=== PATIENT | female | born 1955 | race Caucasian/White ===

== ENCOUNTER 2017-01-25 12:13 | Inpatient (IN) | payer MEDICARE ==
[~2017-01-25] VITALS: Ht 165.1 cm; Wt 114.8 kg
[2017-01-25] VITALS (9 sets, daily range): BP systolic 150–221; BP diastolic 71–105
--- NOTE | ~2017-01-25 | EKG ---
[place], [place] ELECTROCARDIOGRAM REPORT NAME: MUNIR TRIPLETT UNIT #: [id number] ROOM: 512 DOCTOR: KISHA HERNANDEZ MD BIRTHDATE: [birth year] DOS: 01/26/2017 TIME: 1144 hours. Normal sinus rhythm at 72 beats per minute. Mild left axis deviation. No significant change from an ECG of the previous day. KISHA HERNANDEZ MD CM:EKGRPT:ELECTROCARDIOGRAM REPORT 1722 KISHA HERNANDEZ MD
--- NOTE | ~2017-01-25 | EKG ---
[place], [place] ELECTROCARDIOGRAM REPORT NAME: MUNIR TRIPLETT UNIT #: [id number] ROOM: 512 DOCTOR: KISHA HERNANDEZ MD BIRTHDATE: [birth year] DOS: 01/25/2017 TIME: 1226 hours. Normal sinus rhythm at 81 beats per minute. Mild left axis deviation. The tracing is normal. No previous tracing is available for comparison. KISHA HERNANDEZ MD CM:EKGRPT:ELECTROCARDIOGRAM REPORT 1722 KISHA HERNANDEZ MD
--- NOTE | ~2017-01-25 | CON ---
[place], [place] REPORT OF CONSULTATION NAME: MUNIR TRIPLETT UNIT #: [id number] ROOM: 512 DOCTOR: KISHA HERNANDEZ MD BIRTHDATE: [birth year] DOS: 01/26/2017 HISTORY OF PRESENT ILLNESS: This is a 61-year-old -[place] woman with a history of morbid obesity, diabetes mellitus with gastroparesis and chronic recurrent nausea according to Dr. Barriga's note, GERD and esophagitis, chronic back pain, essential hypertension, which has not been controlled well. She has coronary artery disease and had a stent deployed a few years ago. She has never had a stroke, heart failure or any kidney problems and no COPD. She came to the Emergency Department complaining of left-sided chest pain that seemed to go up to the left side of the neck. At times it is sharp. It comes and goes. She may be without the symptom for couple of hours and there was a little bit of she had sweating with the chest pain, but no palpitations. She did not have any breathing difficulty, no loss of consciousness. There has not been orthopnea or swelling of the lower extremities. She also complains of low back pain. SOCIAL HISTORY: She does not use alcohol and does not smoke cigarettes. She has had persistently elevated blood pressure a while ago. Blood pressure was [address] Maldonado' office. HOME MEDICATIONS: Include carvedilol 25 mg b.i.d., clonidine 0.1 mg q.h.s., lisinopril 20 mg daily, omeprazole 20 daily, Zofran 8 mg p.r.n. b.i.d., Ambien 5 q.h.s., insulin/Levemir 50 units b.i.d. and Humalog as well, [place] 5/325 mg, gabapentin 300 mg daily. PHYSICAL EXAMINATION: GENERAL: The patient is moderately obese. She is pleasant, alert, oriented. Her complexion is fine. She is not in any distress. She is not tachypneic. VITAL SIGNS: Blood pressure upon arrival was 221/105 and currently it is 162/80. NECK: JVP is normal. There is no carotid bruit. No cardiomegaly is present. HEART: There are no murmurs or rubs. EXTREMITIES: She has good pedal pulses and no edema in the lower extremity. LUNGS: Breath sounds are fairly decent bilaterally without any adventitious sounds. DIAGNOSTIC STUDIES: The ECG showed normal sinus rhythm and left axis deviation, but no ST-T abnormality. Troponin I levels have been normal. IMPRESSION: This patient with known coronary artery disease, had a heart cath done recently, which did not demonstrate significant coronary stenosis. She had significant chest pain in the setting of markedly elevated blood pressure. This elevated pressure may have caused subendocardial ischemia causing her symptoms. Her blood pressure is better now. Her symptoms have still occurred at rest, anyway she has ruled out for an acute myocardial infarction. RECOMMENDATIONS: I think she should be ambulated in the hallways and if no symptoms are reported she may be discharged home and you may want to [place], [place] REPORT OF CONSULTATION NAME: MUNIR TRIPLETT UNIT #: [id number] ROOM: 512 DOCTOR: MARY EDGAR,KISHA BIRTHDATE: [birth year] perform a Lexiscan Cardiolite study as outpatient. Hypertension. Lisinopril has been increased to 20 mg b.i.d. Hopefully, this will curtail her blood pressure adequately. I thank you for this consult. KISHA HERNANDEZ MD CM:CONSTR:REPORT OF CONSULTATION 1036 01/27/17 0023 interface
--- NOTE | ~2017-01-25 | WRIGHTHP ---
[place], [place] PATIENT HISTORY AND PHYSICAL EXAM NAME: MUNIR TRIPLETT [facility] #: [id number] UNIT #: [id number] ROOM: 512 DOCTOR: FERNANDO GRAVES MD BIRTHDATE: [birth year] DOS: 01/25/2017 HISTORY OF PRESENT ILLNESS: The patient is a 61-year-old female with a past medical history of: 1. Adult failure to thrive. 2. Obesity. 3. Chronic dizziness. 4. Diabetic gastroparesis with chronic recurrent nausea. 5. Chronic lower back pains. 6. GERD and esophagitis. 7. Benign essential hypertension. 8. Coronary artery disease of belkofski vessels. 9. Heart catheterization by Dr. Rodriguez in December of 2015. 10. Type 2 diabetic. The patient presented to the Emergency Department at [facility] with complaints of left-sided chest pain going to the left shoulder, left side of the neck, sharp and more or less constant going on for about one day. After admission, the patient is not complaining of any increased shortness of breath, no wheezing, no GI or urinary symptoms. REVIEW OF SYSTEMS: LUNGS: No increasing shortness of breath or wheezing. GASTROINTESTINAL: No nausea, vomiting, diarrhea, or constipation. CARDIOVASCULAR: Left-sided chest pains which are sharp. FAMILY HISTORY: Noncontributory. SOCIAL HISTORY: Denies smoking cigarettes, alcohol and drug abuse. ALLERGIES: Known allergies to IODINE, DYE AND PENICILLINS. PHYSICAL EXAMINATION: GENERAL: Alert and oriented x3, in no visible distress, moderately obese. HEENT AND NECK: Extraocular movements are intact. Sclerae are anicteric. Oral mucosa is moist and clean. No obvious facial weakness. Neck is supple without any lymphadenopathy. No thyromegaly. No JVD. No carotid arterial bruits. LUNGS: Clear to auscultation. No wheezing. No rhonchi. CARDIOVASCULAR SYSTEM: Heart rate is regular in rate and rhythm. S1 and S2 normally audible. No significant murmur or any other abnormal cardiac sounds. ABDOMEN: Soft, nontender. No obvious organomegaly. Bowel sounds are present. No obvious herniation. EXTREMITIES: Without significant cyanosis or edema. Warm to touch. CENTRAL NERVOUS SYSTEM: Alert and oriented x 3. Cranial nerves II-XII are intact. Speech is normal. The patient is able to move all extremities. Normal muscle strength. Deep tendon reflexes are equal on both sides. Plantars were downgoing. The patient presenting with left-sided chest pains going into her left neck, face, left arm for the last one day. [place], [place] PATIENT HISTORY AND PHYSICAL EXAM NAME: MUNIR TRIPLETT UNIT #: [id number] ROOM: [facility] DOCTOR: FERNANDO GRAVES MD BIRTHDATE: [birth year] LABORATORY DATA: Normal serum electrolytes. First set of cardiac enzymes were negative. Chest x-ray was normal. Normal CBC. IMPRESSION: 1. The patient with previous history of coronary artery disease and heart catheterization by her scrap materials buyer, Dr. Rodriguez, last year, comes in with left-sided chest pains, not typical for angina. I will admit her on recommendation of the ER physician and check her cardiac enzymes. Her scrap materials buyer, Dr. Rodriguez, has been reconsulted and she will be treated according to his recommendations. The patient was given aspirin in the Emergency Department and it will be continued here. 2. History of benign essential hypertension with some elevated blood pressures. The patient's home medications which are Coreg and lisinopril have been continued. The patient also takes clonidine, blood pressure is being monitored and she is being carefully monitored on the intermediate monitored bed. 3. Chronic lower back pains, for which she takes hydrocodone on as needed basis, which has been continued. The patient says she has had previous MRI and other studies performed for her back pains. 4. Chronic primary insomnia, controlled with zolpidem which is being continued on p.r.n. basis. 5. Gastroesophageal reflux disease and esophagitis. The patient on omeprazole without any complaints of heartburns. 6. Type 2 diabetes mellitus, which is insulin requiring. I will continue her insulin and monitor her blood sugars and treat accordingly and I will also keep her on no concentrated sweet diet. 7. Benign essential hypertension with some elevated blood pressure, her home meds have been continued and we will adjust medications as necessary. 8. Coronary artery disease of belkofski vessels with heart catheterization last year, Dr. Rodriguez, the scrap materials buyer, follows her. FERNANDO GRAVES MD CM:HISPHYS:PATIENT HISTORY AND PHYSICAL EXAMINATION 1742 1826 FERNANDO GRAVES MD 01/25/17 1923 interface
--- NOTE | ~2017-01-25 | DS ---
[place], [place] DISCHARGE SUMMARY NAME: MUNIR TRIPLETT UNIT #: [id number] ROOM: 512 DOCTOR: FERNANDO GRAVES MD BIRTHDATE: [birth year] DOS: 01/26/2017 DISCHARGE DIAGNOSES: 1. Chest pains from uncertain etiology. The patient was seen by Dr. Rodriguez, her logging contractor and cleared for discharge. Cardiac enzymes were negative. 2. Adult failure to thrive. 3. Obesity. 4. Chronic dizziness. 5. Benign essential hypertension. 6. Gastroesophageal reflux disease and esophagitis. 7. Chronic lower back pains. 8. Diabetic gastroparesis and recurrent nausea. 9. Coronary artery disease of the habematolel vessels with heart catheterization by Dr. Rodriguez in December 2015 which is last year. 10. Type 2 diabetes mellitus. HOSPITAL COURSE: The patient admitted when she presented with left-sided chest pain going into the left shoulder and left side of the neck, which were sharp and constant, not typical for angina. The patient recommended for admission by the ER physician. Her cardiac enzymes were checked and were normal. The patient already had a heart catheterization last year by her logging contractor, Dr. Rodriguez who also reevaluated her and cleared her for discharge to home today. The patient is complaining of some dizziness when she stood up blood pressure was checked lying down and standing up along with heart rate and she showed no signs of postural hypotension. Chronic lower back pain for which she takes hydrocodone which was continued. Chronic primary insomnia, treated with zolpidem which was continued. Type 2 diabetes mellitus with blood sugars were monitored and treated. Benign essential hypertension with slightly elevated blood pressures apparently from anxiety will need to be followed as an outpatient. The patient was asked to see Dr. Maldonado her PCP on Sunday. LABORATORY DATA: Troponin I levels were all baseline at less than 0.015. Normal serum electrolytes. Blood sugar 163. Normal CBC. Chest x-ray was also normal. DISCHARGE MANAGEMENT: Lisinopril 20 mg b.i.d., Coreg 25 mg b.i.d., 70/30 insulin 45 units b.i.d., omeprazole 20 mg a day, lisinopril 20 mg a day, gabapentin 300 mg at bedtime, Levemir insulin 50 units every 12 hours subq, clonidine 0.1 mg at bedtime, ondansetron 8 mg orally b.i.d. p.r.n. for nausea, Tylenol p.r.n., zolpidem 10 mg at bedtime p.r.n. for sleep, hydrocodone q.i.d. p.r.n. for pain. Follow up with Dr. Maldonado on Sunday. [place], [place] DISCHARGE SUMMARY NAME: MUNIR TRIPLETT UNIT #: [id number] ROOM: [facility] DOCTOR: FERNANDO GRAVES MD BIRTHDATE: [birth year] FERNANDO GRAVES MD CM:TORRIE 1506 05 FERNANDO GRAVES MD 01/26/171905 interface
[~2017-01-25 12:13] MED LIST: 'CLONIDINE0.1 MG PO; ABILIFY10 MG PO; ACETAMINOPHEN-H1 TA2 PO; AMARYL4 MG PO; AMBIEN10 M1 PO; AMITRIPTYLINE10 MG PO; APAP/HYDROCODON1 T45 PO; APAP/HYDROCODON1 T46 PO; ASPIRIN80 MG PO; ASPIRIN81 M1; ATENOLOL25 MG PO; ATENOLOL50 M1 PO; ATENOLOL50 MG; ATENOLOL50 MG PO; ATIVAN1 MG PO; BACTRIM DS 8001 TA1 PO; BIAXIN FILMTAB500 MG PO; BYETTA10 MCG/0.0 SC; CARAFATE1 G1 PO; CARAFATE1 GM/10 ML PO; CIPRO500 MG PO; CIPROFLOXACIN500 MG PO; CLEOCIN150 MG PO; COMPAZINE10 MG PO; COREG25 MG PO; COZAAR100 MG PO; COZAAR25 MG; COZAAR25 MG PO; COZAAR50 MG PO; Carafate1 GM PO; DAYPRO600 M1 PO; DEMADEX10 MG PO; DEMADEX100 MG; DIABETA5 MG PO; DIPHENHYDRAMINE50 MG; DRISDOL50000 IU PO; ECPIRIN325 MG PO; FIORICET 50-301 EACH PO; FLAGYL500 MG PO; FLEXERIL10 MG PO; FLEXERIL5 MG PO; GLYBURIDE5 MG PO; HUMALOG100 U/ML; HUMALOG100 U/ML SC; HUMULIN 70/30 703 M1 SC; HUMULIN 70/30 710 M1 SC; HUMULIN R100 U/ML IJ; HUMULIN R100 U/ML SC; HUMULIN U; HYDROCODONE BIT1 T11 PO; JANUVIA100 MG PO; K-DUR 1010 MEQ; K-DUR 1010 MEQ PO; KEFLEX500 MG PO; LANTUS100 U/ML SC; LASIX40 MG PO; LEVEMIR10 ML SC; LEVEMIR100 U/ML; LEVEMIR100 U/ML SC; LISINOPRIL5 MG PO; LOPRESSOR50 MG PO; LORAZEPAM1 MG PO; LOSARTAN POTASS50 MG PO; Lasix80 MG PO; MECLIZINE HCL25 M2 PO; MEGACE 40400 MG/10 PO; METFORMIN HCL1000 MG PO; METFORMIN1000 MG PO; METFORMIN500 MG PO; METRONIDAZOLE250 MG PO; MICRO-K 1010 MEQ; MIRTAZAPINE15 MG PO; MIRTAZAPINE30 M2 PO; MIRTAZAPINE30 MG PO; MONODOX100 MG PO; NEURONTIN300 MG PO; NIZORAL2% TP; NORCO 325 MG-51 TAB PO; NORCO 325 MG-7.1 TAB PO; NORCO 5-325 TA1 EACH PO; NOVOLIN 70100 UNIT/1 SQ; NOVOLIN R100 U/ML SC; NOVOLOG 70/30 M10 ML SC; NOVOLOG FLEX100 U/ML SC; NOVOLOG1 UNIT/0.0 SC; NOVOLOG100 U/ML SC; PEPTO BISMOL C262 MG PO; PHENERGAN25 M1 PO; PHENERGAN25 MG R; PRAVACHOL40 MG PO; PRAVACHOL80 M1 PO; PRAVACHOL80 MG PO; PRAVASTATIN SOD40 MG PO; PRAVASTATIN SOD80 MG PO; PREDNICOT20 MG PO; PREVACID30 M1; PRILOSEC OTC20 MG PO; PRILOSEC20 M2 PO; PRILOSEC20 MG; PRILOSEC20 MG PO; PROTONIX40 MG PO; RANITIDINE150 MG PO; REGLAN10 MG PO; REMERON SOLTAB30 MG PO; REMERON30 MG PO; SERTRALINE100 MG PO; SIMVASTATIN80 MG; SUMYCIN,ACHROM500 M1 PO; TRIAMTERENE & H1 CA1; TRIMOX500 MG PO; VICO75300 PO; VICODIN 5/500 505 MG PO; VICODIN 500 MG-1 TAB PO; VICODIN ES 7501 TAB PO; VITAMIN D; VITAMIN D5000 I2 PO; ZOCOR80 MG PO; ZOFRAN ODT4 MG SL; ZOFRAN8 M1 PO; ZOFRAN8 MG PO; ZOLOFT100 MG PO; ZOLOFT50 MG PO; ZOVIRAX800 MG PO; [UNRECOGNIZED DRUG - OTHER]
[2017-01-25 12:53] LABS: BASO # 0.1 10*3/uL (0.0-0.1); BASO % 0.6 % (0.0-1.0); EOS # 0.2 10*3/uL (0.0-0.4); EOS % 2.2 % (1.0-4.0); HEMATOCRIT 39.8 % (37.0-47.0); HEMOGLOBIN 13.3 g/dl (12.0-16.0); LYMPH # 2.2 10*3/uL (1.3-4.4); MEAN CELL VOLUME 88.4 fl (81.0-99.0); MEAN CORPUSCULAR HGB 29.6 pg (27.0-31.0); MEAN CORPUSCULAR HGB CONC 33.4 g/dl (33.0-37.0); MEAN PLATELET VOLUME 9.8 fl (9.6-12.3); MONO # 0.7 10*3/uL (0.1-1.0); MONO % 7.9 % (3.0-9.0); NEUT # 5.7 10*3/uL (2.3-7.9); PLATELET COUNT AUTOMATED 205 10*3/uL (130-400); RED CELL DISTRI WIDTH 13.1 % (0-14.5); WHITE BLOOD COUNT 8.9 10*3/uL (4.8-10.8)
[2017-01-25 13:09] LABS: BUN 10 mg/dl (7-24); CARBON DIOXIDE 31 mmol/L (21-32); CHLORIDE 102 mmol/L (98-107); EST GLOM FILT AFRICAN AMERICAN > 60 ml/min; GLUCOSE 163 mg/dL (65-99); POTASSIUM 4.2 mmol/L (3.5-5.1); SODIUM 139 mmol/L (136-145)
[2017-01-25 13:10] LABS: TROPONIN I < 0.015 ng/ml (<0.045)
[2017-01-25] MEDS ORDERED: NEURONTIN300 MG PO (21:42)
[2017-01-26] VITALS: BP 162/80
[2017-01-26 08:00] VITALS: BP 162/80
[2017-01-26 12:00] VITALS: BP 170/74
== END 2017-01-26 15:47 | disposition home or self-care (01) | DRG 305 ==
LOC: ED 12:13 → EDHOLD 13:51 → 5E 13:51
PROVIDERS: Emergency Medicine
DX: I10 Essential (primary) hypertension (principal); K31.84 Gastroparesis; E11.43 Type 2 diabetes mellitus with diabetic autonomic (poly)neuropathy; Z68.41 Body mass index [BMI] 40.0-44.9, adult; I25.10 Atherosclerotic heart disease of native coronary artery without angina pectoris; E66.9 Obesity, unspecified; R62.7 Adult failure to thrive; K21.0 Gastro-esophageal reflux disease with esophagitis; G89.29 Other chronic pain; M54.9 Dorsalgia, unspecified; R42 Dizziness and giddiness; F51.04 Psychophysiologic insomnia; Z88.0 Allergy status to penicillin; Z91.041 Radiographic dye allergy status

== ENCOUNTER 2017-03-30 18:48 | Emergency (ER) | payer MEDICARE ==
[~2017-03-30] VITALS: Ht 165 cm; Wt 111.6 kg
--- NOTE | ~2017-03-30 | EKG ---
[place], [place] ELECTROCARDIOGRAM REPORT NAME: MUNIR TRIPLETT UNIT #: [id number] ROOM: 402 DOCTOR: KISHA HERNANDEZ MD BIRTHDATE: [birth year] DOS: 03/30/2017 TIME: 1855 hours. Normal sinus rhythm at 71 beats per minute. Mild left axis deviation. The tracing is normal. No previous tracing is available for comparison. KISHA HERNANDEZ MD CM:EKGRPT:ELECTROCARDIOGRAM REPORT 1657 1808 KISHA HERNANDEZ MD
[2017-03-30 18:57] VITALS: BP 133/69
[2017-03-30 19:34] VITALS: BP 156/111
[2017-03-30 19:34] LABS: BASO # 0.1 10*3/uL (0.0-0.1); BASO % 0.6 % (0.0-1.0); EOS # 0.2 10*3/uL (0.0-0.4); EOS % 2.2 % (1.0-4.0); HEMATOCRIT 41.3 % (37.0-47.0); HEMOGLOBIN 14.1 g/dl (12.0-16.0); IG # 0.1 10*3/uL (0.0-0.1); LYMPH # 3.1 10*3/uL (1.3-4.4); LYMPH % 32.4 % (27.0-41.0); MEAN CELL VOLUME 87.5 fl (81.0-99.0); MEAN CORPUSCULAR HGB 29.9 pg (27.0-31.0); MEAN CORPUSCULAR HGB CONC 34.1 g/dl (33.0-37.0); MEAN PLATELET VOLUME 10.4 fl (9.6-12.3); MONO # 0.6 10*3/uL (0.1-1.0); MONO % 6.5 % (3.0-9.0); NEUT # 5.4 10*3/uL (2.3-7.9); NEUT % 57.8 % (47.0-73.0); PLATELET COUNT AUTOMATED 221 10*3/uL (130-400); RED BLOOD COUNT 4.72 10*6/uL (4.10-5.10); RED CELL DISTRI WIDTH 12.7 % (0-14.5); WHITE BLOOD COUNT 9.4 10*3/uL (4.8-10.8)
[2017-03-30 19:37] VITALS: BP 160/63
[2017-03-30 19:44] LABS: PROTHROMBIN TIME 10.1 SECONDS (9.0-12.4)
[2017-03-30 19:50] LABS: ALBUMIN 3.6 gm/dl (3.1-4.5); ALKALINE PHOSPHATASE 88 U/L (45-117); BILIRUBIN, TOTAL 0.5 mg/dl (0.2-1.0); BUN 14 mg/dl (7-24); CARBON DIOXIDE 27 mmol/L (21-32); CHLORIDE 99 mmol/L (98-107); EST GLOM FILT AFRICAN AMERICAN 59 ml/min; GLUCOSE 293 mg/dL (65-99); MAGNESIUM 1.6 mg/dL (1.5-2.1); POTASSIUM 4.1 mmol/L (3.5-5.1); SGOT/AST 32 IU/L (3-35); SGPT/ALT 36 U/L (12-78); SODIUM 138 mmol/L (136-145); TOTAL PROTEIN 8.4 gm/dL (6.4-8.2)
[2017-03-30 19:51] LABS: TROPONIN I < 0.015 ng/ml (<0.045)
[2017-03-30 20:06] VITALS: BP 138/65
[2017-03-30 20:18] VITALS: BP 133/70
[2017-03-31] VITALS: BP 132/76
== END 2017-03-31 02:26 | disposition short-term general hospital (02) ==
LOC: ED 18:48 → EDHOLD 20:10 → 4E 20:17 → EDHOLD 20:17 → 4E 03-31 02:19 → ED 03-31 02:19
PROVIDERS: Emergency Medicine
DX: R07.9 Chest pain, unspecified (principal); I25.10 Atherosclerotic heart disease of native coronary artery without angina pectoris; I10 Essential (primary) hypertension; E11.9 Type 2 diabetes mellitus without complications; Z87.891 Personal history of nicotine dependence; Z95.818 Presence of other cardiac implants and grafts; Z88.0 Allergy status to penicillin; Z91.041 Radiographic dye allergy status; Z79.899 Other long term (current) drug therapy; Z80.9 Family history of malignant neoplasm, unspecified; Z82.49 Family history of ischemic heart disease and other diseases of the circulatory system; Z83.3 Family history of diabetes mellitus

== ENCOUNTER 2017-07-07 17:19 | Inpatient (IN) | payer MEDICARE ==
[~2017-07-07] VITALS: Ht 165.1 cm; Wt 117.5 kg
--- NOTE | ~2017-07-07 | PR ---
[place], [place] PROGRESS NOTE NAME: MUNIR TRIPLETT UNIT #: [id number] ROOM: 401 DOCTOR: GALILEA ROSAS MD BIRTHDATE: [birth year] DOS: SUBJECTIVE: The patient does not have any new complaints, just minimal swelling in her lower legs. OBJECTIVE: VITAL SIGNS: Graphic trend shows a pressure of 103/52, pulse of 70, respirations 20, temperature 97.8. LUNGS: Clear. HEART: Regular. ABDOMEN: Obese, soft, nontender. EXTREMITIES: Trace edema bilaterally. ASSESSMENT AND PLAN: 1. Increased leg edema, the patient is started on low dose diuretics. The venous Doppler was done and I do not have the results yet. 2. Chest pain, ruled out for myocardial infarction. No cardiac workup planned as per the cardiology. The plan is to discharge her to home. 3. Type 2 diabetes mellitus, poorly controlled. Blood sugars have been controlled here. GALILEA ROSAS MD CM:PNTRANS 0851 1325 GALILEA ROSAS MD 07/09/17 1324 interface
--- NOTE | ~2017-07-07 | CON ---
[place], [place] REPORT OF CONSULTATION NAME: MUNIR TRIPLETT UNIT #: [id number] ROOM: 401 DOCTOR: TAHIR HERRMANN DPM BIRTHDATE: [birth year] DOS: 07/09/2017 SUBJECTIVE: This patient is seen for followup of chronic edema, venous insufficiency both lower extremities. She states she is feeling better. Legs are still sensitive. She is still getting some symptoms in her feet. She is a diabetic with neuropathy, currently on gabapentin. She had a venous ultrasound done this morning. She states overall legs have decreased in swelling and are feeling a little better. PAST MEDICAL HISTORY: Positive for morbid obesity, diabetes, congestive heart failure, hyperlipidemia. ALLERGIES: PENICILLIN AND IVP DYE. MEDICATIONS: Include Zestril, insulin, Coreg, Prilosec, Ambien, Neurontin, Catapres, Zofran and [place]. OBJECTIVE: Upon lower extremity physical examination, DP and PT pedal pulses are only minimally decreased. Skin temperature is warm. CFT is less than 2 seconds to all digits. There is dependent edema noted bilaterally, left slightly worse than right. Negative Homans sign is seen bilaterally. Sensation is mildly decreased in the forefoot bilaterally. There is no erythema about the legs, no blisters or macerations. No ulcerations. Again, edema is minimal on the right lower extremity and mild in the left. There is no pain with palpation and range of motion of pedal joints at this time. Venous ultrasound was negative for DVT bilaterally. PLAN: Consult is performed. I discussed with the patient about conservative management of her venous insufficiency. I will write her a prescription for compression hose below the knee 20-30 mmHg to apply first thing in the morning and take off in the evening. She has no open wounds, so no wound care is needed at this time. Encouraged her to take her diuretic as instructed and elevate her limbs whenever possible. We will follow her up at a later date as an outpatient. Thank you for the opportunity to take part in care of this patient. TAHIR HERRMANN DPM CM:CONSTR:REPORT OF CONSULTATION 1136 07/09/17 1522 interface
--- NOTE | ~2017-07-07 | DS ---
[place], [place] DISCHARGE SUMMARY NAME: MUNIR TRIPLETT UNIT #: [id number] ROOM: 401 DOCTOR: GALILEA ROSAS MD BIRTHDATE: [birth year] DOS: 07/09/2017 DIAGNOSES: 1. Chest pain, ruled out for myocardial infarction. 2. History of coronary artery disease, no cardiac workup as per Dr. Rodriguez. 3. Severe peripheral neuropathy with chronic pain. 4. Type 2 diabetes mellitus, poorly controlled. 5. Leg edema. 6. Generalized anxiety disorder. 7. Major depression, mild, recurrent. HOSPITAL COURSE: The patient is 62 years old, comes in with complaints of chest pain. Please see the H and P for the details. She had cardiac enzymes done, which have all come back negative, ruling out for pneumonia. Dr. Rodriguez did see the patient. He recommended no further workup. Has minimal leg edema. She has compression stockings ordered and the patient is placed on low dose diuretics. Venous Doppler was done and I do not have the results yet but the patient is stable and can be discharged home to be followed up as an outpatient. The patient is encouraged to have better control of her diabetes. GALILEA ROSAS MD CM:DISCHJAYLA [id number] GALILEA ROSAS MD 07/10/17 0509 interface
--- NOTE | ~2017-07-07 | EKG ---
[place], [place] ELECTROCARDIOGRAM REPORT NAME: MUNIR TRIPLETT UNIT #: [id number] ROOM: 401 DOCTOR: KISHA HERNANDEZ MD BIRTHDATE: [birth year] DOS: 07/07/2017 TIME: 1736 hours. Normal sinus rhythm at 85 beats per minute. Moderate left axis deviation. Nonspecific T-wave changes in the anterior chest leads. No previous tracing is available for comparison. KISHA HERNANDEZ MD CM:EKGRPT:ELECTROCARDIOGRAM REPORT 1144 1302 KISHA HERNANDEZ MD
--- NOTE | ~2017-07-07 | CON ---
[place], [place] REPORT OF CONSULTATION NAME: MUNIR TRIPLETT UNIT #: [id number] ROOM: 401 DOCTOR: KISHA HERNANDEZ MD BIRTHDATE: [birth year] DOS: 07/08/2017 HISTORY OF PRESENT ILLNESS: This is a 62-year-old -[place] Citizen woman with a history of morbid obesity, type 2 diabetes mellitus, essential hypertension, hyperlipidemia, GERD, depression and anxiety. She also has coronary artery disease and she had a coronary stent and deployed about 7 years ago or so. She has never had heart failure. She was admitted to the hospital because of a week or two of left arm discomfort and heaviness along with tingling in the fingers and at times, she has had a left jaw discomfort, pretty much at the same time when she had arm discomfort, but no anterior chest heaviness or pressure. She has had several episodes often when sitting watching TV. Activity does not seem to have precipitated this. Interestingly, she wakes up at night with numbness in the left hand and she shakes her hand quite a bit. This is suggestive of carpal tunnel syndrome. She has not had any exertional chest pain, but has had exertional shortness of breath, which is chronic with mild exacerbation. She has not had any orthopnea, but has some swelling in the legs. She is on the following medications at home, carvedilol 25 b.i.d., clonidine 0.1 mg at bedtime, gabapentin 300 t.i.d., lisinopril 20 mg daily, omeprazole 20 mg daily, Zocor 80 mg b.i.d. p.r.n., Ambien 10 mg daily, Levemir 50 units b.i.d. and Humalog. PHYSICAL EXAMINATION: GENERAL: The patient who is moderately obese. She is alert and oriented. She is not in any distress. Her complexion is fine. There is no thyromegaly or finger clubbing. VITAL SIGNS: Pulse is 72 and regular; blood pressure 116/91, highest blood pressure was 162/90. NECK: JVP appears to be normal. There is no carotid bruit. HEART: There is no cardiomegaly. Auscultation reveals no murmurs or rubs. EXTREMITIES: She had 1-2+ edema in the lower extremities and pedal pulses were palpable. RESPIRATORY: Lungs were clear to percussion and auscultation, although breath sounds were mildly reduced because of obesity. ABDOMEN: Supple, nontender. No bruit. DIAGNOSTIC STUDIES: An ECG done in the Emergency Department demonstrated normal sinus rhythm at 85 beats per minute and essentially a normal pattern. Troponin I levels were also normal. I did a couple of maneuvers and she has left carpal tunnel syndrome. When I reproduced the symptoms, she had the same heaviness and tightness in the left arm and slight jaw discomfort. IMPRESSION: 1. This patient has left carpal tunnel syndrome which is most likely causing her symptoms. 2. She also has depression, anxiety and hyperventilation, seemed to pertinently [place], [place] REPORT OF CONSULTATION NAME: MUNIR TRIPLETT UNIT #: [id number] ROOM: [facility] DOCTOR: KISHA HERNANDEZ MD BIRTHDATE: [birth year] cause spasm of muscles of upper and lower limbs. 3. Coronary artery disease. I believe this is not causing symptoms. From cardiac standpoint, she may be discharged home. KISHA HERNANDEZ MD CM:CONSTR:REPORT OF CONSULTATION 0705 07/08/17 1048 interface
--- NOTE | ~2017-07-07 | WRIGHTHP ---
[place], [place] PATIENT HISTORY AND PHYSICAL EXAM NAME: [id number] UNIT #: [id number] ROOM: 401 DOCTOR: FERNANDO GRAVES MD BIRTHDATE: [birth year] DOS: 07/08/2017 HISTORY OF PRESENT ILLNESS: The patient presented to the Emergency Department with increased weakness, shortness of breath, chest pains, some cough and increasing swelling in her legs. After admission, cardiac enzymes all are negative and patient has been seen by her mill attendant, Dr. Rodriguez, who does not think her chest pains are related to coronary artery disease. The patient is chest pain free now. Obesity generalized weakness, increased leg edema and adult failure to thrive. REVIEW OF SYSTEMS: LUNGS: Some chronic shortness of breath. GASTROINTESTINAL: No nausea, vomiting, diarrhea or constipation. CARDIOVASCULAR SYSTEM: Complains of chest pains, resolved now. SOCIAL HISTORY: Denies smoking cigarettes, alcohol and drug abuse. FAMILY HISTORY: Noncontributory. ALLERGIES: Known allergies to IVP DYE with rash, PENICILLIN. PHYSICAL EXAMINATION: GENERAL: Alert and oriented x 3, morbidly obese with generalized weakness. HEENT AND NECK: Extraocular movements are intact. Sclerae are anicteric. Oral mucosa is moist and clean. No obvious facial weakness. Neck is supple without any lymphadenopathy. No thyromegaly. No JVD. No carotid arterial bruits. LUNGS: Clear to auscultation. No wheezing. No rhonchi. CARDIOVASCULAR SYSTEM: Heart rate is regular in rate and rhythm. S1 and S2 normally audible. No significant murmur or any other abnormal cardiac sounds. ABDOMEN: Soft, nontender. No obvious organomegaly. Bowel sounds are present. No obvious herniation. EXTREMITIES: With 2+ leg and pedal edema. CENTRAL NERVOUS SYSTEM: Alert and oriented x 3. Cranial nerves II-XII are intact. Speech is normal. The patient is able to move all extremities. Normal muscle strength. Deep tendon reflexes are equal on both sides. Plantars were downgoing. IMPRESSION AND PLAN: 1. Increased leg and pedal edema. Venous Dopplers have been ordered to rule out deep venous thrombosis, otherwise, no other signs of deep venous thrombosis. I will use Tubigrips to help with compression and improving edema. 2. Chest pains from uncertain etiology. Cardiac enzymes are negative and mill attendant, Dr. Rodriguez has not recommended any further cardiac workup. 3. Generalized weakness and adult failure to thrive. The patient working with physical therapy. 4. Uncontrolled type 2 diabetes mellitus with blood sugars elevated to ____, apparently related to poor dietary compliance. 5. Benign essential hypertension. I will monitor blood pressures and treat accordingly, continue home meds. [place], [place] PATIENT HISTORY AND PHYSICAL EXAM NAME: MUNIR TRIPLETT UNIT #: [id number] ROOM: [facility] DOCTOR: FERNANDO GRAVES MD BIRTHDATE: [birth year] 6. Coronary artery disease of [place]anga vessels, without chest pains after admission and cardiac enzymes are negative. 7. Chronic complains of dizziness. 8. Advanced adult failure to thrive and recurrent admissions to the hospital. FERNANDO GRAVES MD CM:HISPHYS:PATIENT HISTORY AND PHYSICAL EXAMINATION 03 28 FERNANDO GRAVES MD 07/08/172127 interface
[2017-07-07 17:21] VITALS: BP 162/78
[2017-07-07 18:04] LABS: BASO # 0.1 10*3/uL (0.0-0.1); BASO % 0.7 % (0.0-1.0); EOS # 0.3 10*3/uL (0.0-0.4); EOS % 3.2 % (1.0-4.0); HEMATOCRIT 37.9 % (37.0-47.0); HEMOGLOBIN 12.4 g/dl (12.0-16.0); LYMPH # 2.6 10*3/uL (1.3-4.4); LYMPH % 28.7 % (27.0-41.0); MEAN CELL VOLUME 90.5 fl (81.0-99.0); MEAN CORPUSCULAR HGB 29.6 pg (27.0-31.0); MEAN CORPUSCULAR HGB CONC 32.7 g/dl (33.0-37.0); MEAN PLATELET VOLUME 9.7 fl (9.6-12.3); MONO # 0.7 10*3/uL (0.1-1.0); MONO % 7.7 % (3.0-9.0); NEUT # 5.3 10*3/uL (2.3-7.9); NEUT % 59.3 % (47.0-73.0); PLATELET COUNT AUTOMATED 226 10*3/uL (130-400); RED BLOOD COUNT 4.19 10*6/uL (4.10-5.10); RED CELL DISTRI WIDTH 13.4 % (0-14.5)
[2017-07-07 18:14] LABS: ACT PARTIAL THROMBO TIME 23.8 SECONDS (20.8-31.5)
[2017-07-07 18:22] LABS: ALBUMIN 3.1 gm/dl (3.1-4.5); ALKALINE PHOSPHATASE 73 U/L (45-117); BUN 12 mg/dl (7-24); CHLORIDE 104 mmol/L (98-107); CREATININE 0.97 mg/dL (0.55-1.02); MAGNESIUM 1.6 mg/dL (1.5-2.1); POTASSIUM 3.8 mmol/L (3.5-5.1); SGOT/AST 18 IU/L (3-35); SGPT/ALT 20 U/L (12-78); SODIUM 138 mmol/L (136-145); TOTAL PROTEIN 7.4 gm/dL (6.4-8.2)
[2017-07-07 18:23] LABS: TROPONIN I < 0.015 ng/ml (<0.045)
[2017-07-07 20:00] VITALS: BP 162/90
[2017-07-07 20:30] VITALS: BP 162/90
--- NOTE | 2017-07-07 20:30 | NUR ---
A 62, admitted to , under the services of Dr. STAR EDGAR,FERNANDO Beaver with a diagnosis of BLE EDEMA,CHEST PAIN R/O LA. Chief complaint is LEG EDEMA,CHEST PAIN. Patient arrived via bed from ER. Monitor applied. Initial assessment completed. Vital signs taken and recorded. DR. STAR EDGAR,FERNANDO Beaver notified of admission to the unit. Orders received. See assessment for past medical history, medications and allergies. Patient and/or family oriented to unit. [facility]. Clothing/patient valuable form completed. HEATHER CORONEL
--- NOTE | 2017-07-07 21:12 | NUR ---
CALLED DR. GRAVES MADE AWARE PT IN ROOM. BP 162/90. AND LET HIM KNOW SHE IS NAUSIATED AND BLE LEG/FEET PAIN AND EDEMA. HE WILL TAKE CARE OF IT.
--- NOTE | 2017-07-07 22:03 | NUR ---
FELIX HERRMANN ANSWERING SERVICE THEY WILL BEEP HIM.
--- NOTE | 2017-07-07 22:08 | NUR ---
CALLED DR. HERNANDEZ AWARE OF CONSULT.
--- NOTE | 2017-07-07 22:22 | NUR ---
PT REFUSES FLU AND PNEUMONIA THIS EVENING STATES SHE WANTS TO WAIT UNTIL DISCHARGE SHE DON'T FEEL GOOD.
--- NOTE | 2017-07-07 22:30 | NUR ---
BROUGHT PT ROUTINE MEDS AND ZOFRAN FOR C/O NAUSEA AND NORCO FOR COMPLAINTS OF BILATERAL LEG PAIN. PT REFUSES TO TAKE MEDICATIONS AT THIS TIME. SHE WANTS TO WAIT. CALL LIGHT IN REACH.
--- NOTE | 2017-07-07 23:45 | NUR ---
PT TOLERATED ZOFRAN PO FOR C/O NAUSEA. REFUSES TO TAKE OTHER MEDICATIONS AT THIS TIME. STATES SHE DON'T THINK SHE WILL BE ABLE TO KEEP THEM DOWN PER PT.
[2017-07-08] VITALS: BP 116/91
--- NOTE | 2017-07-08 00:30 | NUR ---
PT RESTING IN BED ON LEFT SIDE. RESP-EASY AND REGULAR. EYES CLOSED. MEDICATION SEEMS TO BE EFFECTIVE. CALL LIGHT IN REACH.
--- NOTE | 2017-07-08 04:00 | NUR ---
SLEEPING IN BED ON SIDE. RESP-EASY AND REGULAR, PT SNORING. CALL LIGHT IN REACH.
--- NOTE | 2017-07-08 05:45 | NUR ---
PT C/O BILATERAL LEG PAIN AND HEADACHE, RATES PAIKN 6 OR 7 ON PAIN SCALE 0-10. MEDICATED WITH NORCO POPER PRN ORDER, SEE EMAR. BSG-134, SEE EMAR. CALL LIGHT IN REACH.
--- NOTE | 2017-07-08 07:45 | NUR ---
DR. HERRMANN RETURNED CALL FOR CONSULT, WILL SEE IN AM. SEE NEW ORDERS.
[2017-07-08 07:49] LABS: BASO # 0.1 10*3/uL (0.0-0.1); BASO % 0.6 % (0.0-1.0); EOS # 0.3 10*3/uL (0.0-0.4); EOS % 3.6 % (1.0-4.0); HEMATOCRIT 35.9 % (37.0-47.0); HEMOGLOBIN 12.1 g/dl (12.0-16.0); LYMPH # 2.6 10*3/uL (1.3-4.4); LYMPH % 29.9 % (27.0-41.0); MEAN CELL VOLUME 89.3 fl (81.0-99.0); MEAN CORPUSCULAR HGB 30.1 pg (27.0-31.0); MEAN CORPUSCULAR HGB CONC 33.7 g/dl (33.0-37.0); MEAN PLATELET VOLUME 9.7 fl (9.6-12.3); MONO # 0.7 10*3/uL (0.1-1.0); MONO % 8.1 % (3.0-9.0); NEUT # 4.9 10*3/uL (2.3-7.9); NEUT % 57.3 % (47.0-73.0); PLATELET COUNT AUTOMATED 204 10*3/uL (130-400); RED BLOOD COUNT 4.02 10*6/uL (4.10-5.10); RED CELL DISTRI WIDTH 13.3 % (0-14.5); WHITE BLOOD COUNT 8.6 10*3/uL (4.8-10.8)
[2017-07-08 08:00] VITALS: BP 132/70
[2017-07-08 11:55] VITALS: BP 160/80
--- NOTE | 2017-07-08 14:50 | NUR ---
PRN NORCO GIVEN PER PT. REQUEST FOR PAIN IN FEET RATING A 7/10. WILL CONTINUE TO MONITOR.
[2017-07-08 16:00] VITALS: BP 130/80
[2017-07-08 20:00] VITALS: BP 155/60
--- NOTE | 2017-07-08 21:13 | NUR ---
PRN PAIN MED GIVEN FOR PT REPORT 7/10 EVAN LEG PAIN.
--- NOTE | 2017-07-08 21:14 | NUR ---
PRN NAUSEA MED GIVEN PER PT REQUEST PREVENTATIVE.
--- NOTE | 2017-07-08 22:14 | NUR ---
PRN PAIN MED EFFECTIVE PT RATES PAIN 5/10. PRN ZOFRAN EFFECTIVE, PT DENIES NAUSEA.
[2017-07-09] VITALS: BP 168/80
--- NOTE | 2017-07-09 05:18 | NUR ---
PRN PAIN MED GIVEN FOR 5/10 LEG PAIN.
--- NOTE | 2017-07-09 05:18 | NUR ---
PRN ZOFRAN GIVEN FOR PT REPORT MILD NAUSEA.
--- NOTE | 2017-07-09 06:18 | NUR ---
PRN PAIN MED EFFECTIVE PT REPORTS PAIN 3-4/10.
--- NOTE | 2017-07-09 06:18 | NUR ---
PRN ZOFRAN EFFECTIVE, PT DENIES NAUSEA.
[2017-07-09 08:00] VITALS: BP 103/52
[2017-07-09] MEDS ORDERED: LASIX40 MG PO (08:48)
--- NOTE | 2017-07-09 10:37 | NUR ---
PHYSICAL THERAPY Physical Therapy Evaluation completed this date. See evradha document for complete details. Will begin PT intervention to address impairments of muscle weakness and difficulty ambulating. Recommend home with home health, but pnt declines at this time[place] [id number] based on chart review and PT lakeshia Rodriguez, PT
[2017-07-09 12:00] VITALS: BP 153/68
--- NOTE | 2017-07-09 12:25 | NUR ---
PHYSICAL THERAPY Aislinn seen this PM 1:1 for her therapy, said that she would go again. All transfers were CG X 1, no LOB, and daughter present. Followed by gait 120' X 1, CG X 1, cueing for gait safety and did very well. Pt back supine in bed and was going to rest now. MARIA R SCHMITT CASTING ROOM HELPER.
--- NOTE | 2017-07-09 13:30 | NUR ---
Discharge instructions reviewed with patient/family. Patient receptive and verbalizes understanding. Follow-up care arranged. Written instructions given to patient/family. ZORA PENALOZA
--- NOTE | 2017-07-10 08:10 | NUR ---
PHYSICAL THERAPY CO-SIGN I approve of the Phyical Therapy notes written above. PATRICIA HOWARD PT
== END 2017-07-09 13:30 | disposition home or self-care (01) | DRG 194 ==
LOC: ED 17:19 → 4E 19:49
PROVIDERS: Emergency Medicine; ADMIT Internal Medicine
DX: J18.9 Pneumonia, unspecified organism (principal); F33.0 Major depressive disorder, recurrent, mild; I11.0 Hypertensive heart disease with heart failure; E11.42 Type 2 diabetes mellitus with diabetic polyneuropathy; I50.9 Heart failure, unspecified; Z68.41 Body mass index [BMI] 40.0-44.9, adult; R07.9 Chest pain, unspecified; I25.10 Atherosclerotic heart disease of native coronary artery without angina pectoris; G56.02 Carpal tunnel syndrome, left upper limb; E11.65 Type 2 diabetes mellitus with hyperglycemia; K21.9 Gastro-esophageal reflux disease without esophagitis; R62.7 Adult failure to thrive; E66.01 Morbid (severe) obesity due to excess calories; E78.5 Hyperlipidemia, unspecified; I87.2 Venous insufficiency (chronic) (peripheral); F41.1 Generalized anxiety disorder; R10.9 Unspecified abdominal pain; G89.29 Other chronic pain; Z98.61 Coronary angioplasty status; Z88.0 Allergy status to penicillin; Z91.041 Radiographic dye allergy status; Z79.4 Long term (current) use of insulin; Z90.710 Acquired absence of both cervix and uterus; Z98.51 Tubal ligation status; Z90.49 Acquired absence of other specified parts of digestive tract; Z82.49 Family history of ischemic heart disease and other diseases of the circulatory system; Z83.3 Family history of diabetes mellitus; Z80.9 Family history of malignant neoplasm, unspecified

== ENCOUNTER → 2017-10-24 | Outpatient (CLI) | payer MEDICARE | END | disposition home or self-care (01) | LOC: RAD 10:32 | DX: J44.9 Chronic obstructive pulmonary disease, unspecified (principal); Z87.891 Personal history of nicotine dependence; E11.9 Type 2 diabetes mellitus without complications; I11.0 Hypertensive heart disease with heart failure; I50.9 Heart failure, unspecified ==

== ENCOUNTER 2017-12-21 10:36 | Inpatient (IN) | payer MEDICARE ==
[~2017-12-21] VITALS: Ht 165.1 cm; Wt 119.7 kg
[2017-12-21] VITALS (8 sets, daily range): BP systolic 117–170; BP diastolic 54–127
--- NOTE | ~2017-12-21 | WRIGHTHP ---
[place], [place] PATIENT HISTORY AND PHYSICAL EXAM NAME: MUNIR TRIPLETT UNIT #: [id number] ROOM: 403 DOCTOR: GALILEA ROSAS MD BIRTHDATE: [birth year] DOS: 12/21/2017 HISTORY OF PRESENT ILLNESS: This patient is 62-year-old who presented to the office for routine appointment, stated that she was having chest pains, which started that day morning. The patient was asked to go to the Emergency Room where she was evaluated and was admitted with complaints of precordial chest pain. The patient this morning has no new complaints. Denies any fever, chills, any cough, any shortness of breath. PAST MEDICAL HISTORY: Significant for: 1. History of coronary artery disease with history of cardiac catheterization by Dr. Rodriguez in the past. 2. Type 2 diabetes mellitus, poorly controlled. 3. Morbid obesity. 4. Generalized anxiety disorder. 5. Chronic pain. 6. Mixed hyperlipidemia. 7. Benign hypertension. MEDICATIONS: She is on carvedilol, clonidine, lisinopril, gabapentin, Lasix, cyclobenzaprine, omeprazole, Ambien, [place], Levemir and 70/30. SOCIAL HISTORY: Nonsmoker. PHYSICAL EXAMINATION: GENERAL: She is awake and alert and oriented. VITAL SIGNS: Graphic trend shows blood pressure 125/73, pulse of 79, respirations 20, temperature 97.9. LUNGS: Clear. HEART: Regular. ABDOMEN: Obese, soft, nontender. Some rebound tenderness noted in the chest wall. EXTREMITIES: Without any edema. ASSESSMENT AND PLAN: 1. A patient who presents with precordial chest pain, had a rule out myocardial infarction protocol done, which was negative. I did ask Dr. Rodriguez to see the patient. He feels that the patient does not need any further workup because he feels that the symptoms are not cardiac in nature and that this is most likely costochondritis. The patient therefore will be discharged home to be followed up as an outpatient. 2. Type 2 diabetes mellitus, poorly controlled. The dose of 70/30 has been increased. The blood sugar this morning was 311. [place], [place] PATIENT HISTORY AND PHYSICAL EXAM NAME: MUNIR TRIPLETT UNIT #: [id number] ROOM: 403 DOCTOR: GALILEA ROSAS MDDATE: [birth year] GALILEA ROSAS MD CM:PHYS:PATIENT HISTORY AND PHYSICAL EXAMINATION [id number] GALILEA ROSAS MD 12/22/17 1734 interface
--- NOTE | ~2017-12-21 | CON ---
[place], [place] REPORT OF CONSULTATION NAME: MUNIR TRIPLETT UNIT #: [id number] ROOM: 403 DOCTOR: KISHA HERNANDEZ MD BIRTHDATE: [birth year] DOS: 12/21/2017 HISTORY OF PRESENT ILLNESS: This is a 62-year-old -[place] woman with a history of coronary artery disease. She had left circumflex artery stented many years ago and she has had 3 heart caths since that time, last one was in 2015 and all demonstrated widely patent stent in the circumflex and other vessels had 20%-30% stenosis, LV ejection fraction was normal. She has morbid obesity and type 2 diabetes mellitus, essential hypertension, hyperlipidemia, GERD, depression and anxiety. She has then never had heart failure, COPD or cancer. She does not smoke nor does she drink alcoholic beverages. She woke up around 5:00 this morning with a sharp, localized left anterior chest pain. She took 3 nitroglycerins sublingually with mild benefit. She went back to sleep and woke up around 8:00 and she had an appointment with Dr. Vibha Maldonado who sent her to the hospital for further workup for this pain. She has also had some numbness in the left hand and forearm, but no discomfort or tightness. She has not had any PND, orthopnea and does not recall any previous exertional chest pain, no swelling of the lower extremities. She has had no nausea or abdominal pain, no acute neurological symptoms. HOME MEDICATIONS: Include carvedilol 25 b.i.d., clonidine 0.1 mg at bedtime, cyclobenzaprine 10 mg t.i.d., furosemide 40 mg daily, gabapentin 300 mg daily, [place] 5/325 mg tablet p.o. q.i.d. p.r.n., lisinopril 20 mg daily, omeprazole 20 mg daily and Ambien 10 mg at bedtime, Levemir and Humalog and also NovoLog 70/30 50 units b.i.d. PHYSICAL EXAMINATION: GENERAL: Reveals the patient who is alert, oriented, moderately obese and quiet. She appears comfortable. VITAL SIGNS: Pulse is regular at 86 beats per minute, blood pressure 145/59. NECK: JVP is normal. There is no carotid bruit. HEART: There is no cardiomegaly, no murmurs were present. EXTREMITIES: She had excellent pedal pulses and no other trace pitting edema. RESPIRATORY: Lungs were clear to percussion and auscultation with good. She had tenderness over the left 5th and 6th costochondral junction and this is where she had pain and discomfort earlier. DIAGNOSTIC DATA: ECG is normal. LABORATORY DATA: Troponin I levels are also normal. IMPRESSION: This patient with known coronary artery disease, has atypical chest pain for myocardial ischemia and this sounds more like a costochondritis. I do not feel she needs any further cardiac workup. She should be ambulated. If she has similar chest discomfort that is tender to palpation, I would try a short course of NSAID. [place], [place] REPORT OF CONSULTATION NAME: MUNIR TRIPLETT UNIT #: [id number] ROOM: 403 DOCTOR: KISHA HERNANDEZ MD BIRTHDATE: [birth year] I thank you for this consult. KISHA HERNANDEZ MD CM:CONSTR:REPORT OF CONSULTATION 2248 12/21/17 2249 interface
[2017-12-21 10:53] LABS: BASO # 0.1 10*3/uL (0.0-0.1); BASO % 0.6 % (0.0-1.0); EOS # 0.3 10*3/uL (0.0-0.4); EOS % 2.8 % (1.0-4.0); HEMATOCRIT 37.7 % (37.0-47.0); HEMOGLOBIN 12.4 g/dl (12.0-16.0); LYMPH # 2.2 10*3/uL (1.3-4.4); LYMPH % 22.7 % (27.0-41.0); MEAN CELL VOLUME 90.4 fl (81.0-99.0); MEAN CORPUSCULAR HGB 29.7 pg (27.0-31.0); MEAN CORPUSCULAR HGB CONC 32.9 g/dl (33.0-37.0); MEAN PLATELET VOLUME 9.9 fl (9.6-12.3); MONO # 0.9 10*3/uL (0.1-1.0); MONO % 9.2 % (3.0-9.0); NEUT # 6.1 10*3/uL (2.3-7.9); NEUT % 64.1 % (47.0-73.0); PLATELET COUNT AUTOMATED 208 10*3/uL (130-400); RED BLOOD COUNT 4.17 10*6/uL (4.10-5.10); RED CELL DISTRI WIDTH 13.2 % (0-14.5); WHITE BLOOD COUNT 9.5 10*3/uL (4.8-10.8)
[2017-12-21 11:02] LABS: ACT PARTIAL THROMBO TIME 23.5 SECONDS (20.8-31.5)
[2017-12-21 11:13] LABS: ALBUMIN 3.2 gm/dl (3.1-4.5); ALKALINE PHOSPHATASE 83 U/L (45-117); BUN 15 mg/dl (7-24); CHLORIDE 95 mmol/L (98-107); POTASSIUM 4.1 mmol/L (3.5-5.1); SGOT/AST 28 IU/L (3-35); SGPT/ALT 35 U/L (12-78); SODIUM 133 mmol/L (136-145); TOTAL PROTEIN 7.7 gm/dL (6.4-8.2)
[2017-12-21 11:15] LABS: TROPONIN I < 0.015 ng/ml (<0.045)
[2017-12-21] MEDS ORDERED: CYCLOBENZAPRINE10 MG PO (14:39)
[2017-12-21] MEDS ORDERED: VITAMIN D22000 UNIT PO (14:39)
[2017-12-22] VITALS: BP 131/54
[2017-12-22 08:00] VITALS: BP 121/60
[2017-12-22 08:31] LABS: BUN 18 mg/dl (7-24); CHLORIDE 97 mmol/L (98-107); CREATININE 0.96 mg/dL (0.55-1.02); POTASSIUM 4.2 mmol/L (3.5-5.1); SODIUM 134 mmol/L (136-145)
[2017-12-22 12:00] VITALS: BP 125/73
[2017-12-22] MEDS ORDERED: NITRO-DUR1 EAC1 TD (15:32)
[2017-12-22] MEDS ORDERED: HUMULIN 70/30 703 M1 SC (15:33)
== END 2017-12-22 17:41 | disposition home or self-care (01) | DRG 206 ==
LOC: ED 10:36 → EDHOLD 13:04 → 4E 13:11
PROVIDERS: Emergency Medicine; Internal Medicine
DX: M94.0 Chondrocostal junction syndrome [Tietze] (principal); E66.01 Morbid (severe) obesity due to excess calories; Z68.41 Body mass index [BMI] 40.0-44.9, adult; I25.10 Atherosclerotic heart disease of native coronary artery without angina pectoris; F41.1 Generalized anxiety disorder; G89.29 Other chronic pain; R10.9 Unspecified abdominal pain; K21.9 Gastro-esophageal reflux disease without esophagitis; F32.9 Major depressive disorder, single episode, unspecified; I10 Essential (primary) hypertension; E78.2 Mixed hyperlipidemia; Z79.899 Other long term (current) drug therapy; Z79.4 Long term (current) use of insulin; Z88.0 Allergy status to penicillin; Z91.041 Radiographic dye allergy status; Z90.49 Acquired absence of other specified parts of digestive tract; Z90.710 Acquired absence of both cervix and uterus; Z98.51 Tubal ligation status; Z95.5 Presence of coronary angioplasty implant and graft; Z82.49 Family history of ischemic heart disease and other diseases of the circulatory system; Z83.3 Family history of diabetes mellitus; Z80.9 Family history of malignant neoplasm, unspecified; E11.9 Type 2 diabetes mellitus without complications

== ENCOUNTER → 2018-01-21 | Outpatient (CLI) | payer MEDICARE ==
[~2018-01-21] MED LIST changes: +CYCLOBENZAPRINE10 MG PO; +NITRO-DUR1 EAC1 TD; +VITAMIN D22000 UNIT PO
== END | disposition home or self-care (01) ==
LOC: RAD 14:49
DX: I10 Essential (primary) hypertension (principal); R06.02 Shortness of breath; E11.9 Type 2 diabetes mellitus without complications; R05 Cough; R53.1 Weakness

== ENCOUNTER → 2018-04-01 | Outpatient (CLI) | payer MEDICARE ==
[~2018-04-01] MED LIST changes: +CEFUROXIME AXE250 MG PO; +VITAMIN D50000 UNIT PO
[2018-04-01 14:58] LABS: CREATININE 3.4 mg/dL (0.55-1.02)
== END | disposition home or self-care (01) ==
LOC: CT 03-28 13:00 → LAB 14:25 → CT 16:00
PROVIDERS: Internal Medicine
DX: I25.10 Atherosclerotic heart disease of native coronary artery without angina pectoris (principal); Z95.2 Presence of prosthetic heart valve

== ENCOUNTER → 2018-08-02 | Outpatient (CLI) | payer MEDICARE | END | disposition home or self-care (01) | LOC: US 12:56 | DX: R60.0 Localized edema (principal) ==

== ENCOUNTER 2018-08-21 13:11 | Emergency (ER) | payer MEDICARE ==
[~2018-08-21] VITALS: Ht 165.1 cm; Wt 111.6 kg
[2018-08-21 13:34] LABS: BASO # 0.1 10*3/uL (0.0-0.1); BASO % 0.5 % (0.0-1.0); EOS # 0.3 10*3/uL (0.0-0.4); EOS % 2.8 % (1.0-4.0); HEMOGLOBIN 13.2 g/dl (12.0-16.0); LYMPH # 2.7 10*3/uL (1.3-4.4); LYMPH % 25.5 % (27.0-41.0); MEAN CELL VOLUME 92.2 fl (81.0-99.0); MEAN CORPUSCULAR HGB 30.4 pg (27.0-31.0); NEUT # 6.6 10*3/uL (2.3-7.9); NEUT % 61.6 % (47.0-73.0); PLATELET COUNT AUTOMATED 183 10*3/uL (130-400); RED BLOOD COUNT 4.34 10*6/uL (4.10-5.10); RED CELL DISTRI WIDTH 13.2 % (0-14.5); WHITE BLOOD COUNT 10.7 10*3/uL (4.8-10.8)
[2018-08-21 13:48] LABS: ALBUMIN 3.3 gm/dl (3.1-4.5); CREATININE 1.42 mg/dL (0.55-1.02); POTASSIUM 4.3 mmol/L (3.5-5.1); TOTAL PROTEIN 8.2 gm/dL (6.4-8.2)
[2018-08-21 13:58] LABS: BILIRUBIN NEGATIVE (NEGATIVE); BLOOD NEGATIVE (NEGATIVE); CLARITY CLEAR (CLEAR); COLOR YELLOW (YELLOW); GLUCOSE NEGATIVE (NEGATIVE); KETONE NEGATIVE (NEGATIVE); LEUKO ESTERASE NEGATIVE (NEGATIVE); NITRITE NEGATIVE (NEGATIVE); PH 5.5 (5.0-9.0); UROBILINOGEN 0.2 E.U./dl (0.2-1.0)
[2018-08-21 14:08] LABS: BACTERIA TRACE; WBC 0-2 wbc/hpf (0-5)
[2018-08-21 16:56] VITALS: BP 143/70
[2018-08-21] MEDS ORDERED: ZOFRAN ODT4 MG SL (16:56)
== END 2018-08-21 16:57 | disposition home or self-care (01) ==
LOC: ED 13:11
PROVIDERS: Nurse Practitioner Family
DX: R11.2 Nausea with vomiting, unspecified (principal); R10.13 Epigastric pain; Z79.4 Long term (current) use of insulin; Z88.0 Allergy status to penicillin

== ENCOUNTER 2019-01-29 23:56 | Emergency (ER) | payer MEDICARE ==
[~2019-01-29] VITALS: Ht 165.1 cm; Wt 118.8 kg
--- NOTE | ~2019-01-29 | EKG ---
[place], [place] ELECTROCARDIOGRAM REPORT NAME: MUNIR TRIPLETT UNIT #: [id number] ROOM: DOCTOR: EPIPHANY DRAFT REPORT BIRTHDATE: [birth year] [facility] Test Date: 2019-01-30 Test Time: 01:01:37 Pat Name: MUNIR TRIPLETT Department: er Room: 9 Gender: F American Studies Professor: Ijeoma Lockett : 1955 Requested By: TOSHIA RIVAS Order Number: [id number] Reading MD: Jason Almazan MD Measurements Intervals [place] Rate: 85 P: 48 ME: 156 QRS: -28 QRSD: 93 T: 13 QT: 388 QTc: 462 Interpretive Statements Sinus rhythm Borderline left axis deviation Abnormal R-wave progression, late transition Borderline ST elevation, lateral leads Electronically Signed On 01-30-2019 12:19:52 PDT by Jason Almazan MD CM:EKGRPT:ELECTROCARDIOGRAM REPORT [id number] TOSHIA HOLLOWAY DRAFT REPORT TOSHIA RIVAS MD
[2019-01-29 23:57] VITALS: BP 117/60
[2019-01-30] MEDS ORDERED: 'CLONIDINE0.1 MG PO (00:25)
[2019-01-30] MEDS ORDERED: ZOLPIDEM TART10 MG PO (00:25)
[2019-01-30] MEDS ORDERED: TIZANIDINE HCL2 MG PO (00:26)
[2019-01-30] MEDS ORDERED: HUMULIN 70100 UNIT/1 SQ (00:26)
[2019-01-30] MEDS ORDERED: LEXAPRO10 MG PO (00:26)
[2019-01-30] MEDS ORDERED: FUROSEMIDE20 M1 PO (00:27)
[2019-01-30] MEDS ORDERED: AMARYL2 MG PO (00:27)
[2019-01-30 00:28] LABS: BILIRUBIN 1+ (NEGATIVE); BLOOD NEGATIVE (NEGATIVE); CLARITY SL CLOUDY (CLEAR); COLOR YELLOW (YELLOW); GLUCOSE NEGATIVE (NEGATIVE); KETONE TRACE (NEGATIVE); LEUKO ESTERASE NEGATIVE (NEGATIVE); NITRITE NEGATIVE (NEGATIVE); SPECIFIC GRAVITY >= 1.030 (1.005-1.030)
[2019-01-30] MEDS ORDERED: Ipratropium Brom3 ML INH (00:28)
[2019-01-30] MEDS ORDERED: PROAIR HFA8.5 GM INH (00:28)
[2019-01-30 00:40] LABS: BACTERIA 1+; EPITHELIAL CELLS 40-45
[2019-01-30 00:41] LABS: RBC 0-2 rbc/hpf (0-2); WBC 0-2 wbc/hpf (0-5)
[2019-01-30 01:17] LABS: BASO # 0.1 10*3/uL (0.0-0.1); BASO % 0.7 % (0.0-1.0); EOS # 0.3 10*3/uL (0.0-0.4); EOS % 2.3 % (1.0-4.0); HEMOGLOBIN 12.9 g/dl (12.0-16.0); LYMPH % 25.7 % (27.0-41.0); MEAN CELL VOLUME 92.4 fl (81.0-99.0); MEAN CORPUSCULAR HGB 29.8 pg (27.0-31.0); MEAN CORPUSCULAR HGB CONC 32.3 g/dl (33.0-37.0); MEAN PLATELET VOLUME 9.8 fl (9.6-12.3); MONO % 8.7 % (3.0-9.0); NEUT # 7.1 10*3/uL (2.3-7.9); PLATELET COUNT AUTOMATED 247 10*3/uL (130-400); RED BLOOD COUNT 4.33 10*6/uL (4.10-5.10); RED CELL DISTRI WIDTH 14.3 % (0-14.5); WHITE BLOOD COUNT 11.5 10*3/uL (4.8-10.8)
[2019-01-30 01:24] LABS: ALBUMIN 3.3 gm/dl (3.1-4.5); ALKALINE PHOSPHATASE 73 U/L (45-117); BUN 20 mg/dl (7-24); CHLORIDE 106 mmol/L (98-107); CREATININE 1.37 mg/dL (0.55-1.02); LIPASE 39 U/L (73-393); POTASSIUM 3.7 mmol/L (3.5-5.1); SGOT/AST 20 IU/L (3-35); SGPT/ALT 28 U/L (12-78); SODIUM 140 mmol/L (136-145); TOTAL PROTEIN 8.2 gm/dL (6.4-8.2)
[2019-01-30 01:25] LABS: ACT PARTIAL THROMBO TIME 23.8 SECONDS (20.8-31.5)
[2019-01-30 01:33] LABS: TROPONIN I < 0.015 ng/ml (<0.045)
[2019-01-30] MEDS ORDERED: MACROBID100 M1 PO (03:55)
== END 2019-01-30 04:01 | disposition home or self-care (01) ==
LOC: ED 23:56
PROVIDERS: Emergency Medicine Emergency Medical Services
DX: N39.0 Urinary tract infection, site not specified (principal); I25.10 Atherosclerotic heart disease of native coronary artery without angina pectoris; G89.29 Other chronic pain; I10 Essential (primary) hypertension; E11.65 Type 2 diabetes mellitus with hyperglycemia; Z90.710 Acquired absence of both cervix and uterus; Z98.51 Tubal ligation status; Z90.49 Acquired absence of other specified parts of digestive tract; Z79.899 Other long term (current) drug therapy; Z79.4 Long term (current) use of insulin; Z91.041 Radiographic dye allergy status; Z88.0 Allergy status to penicillin

== ENCOUNTER → 2019-08-18 | Outpatient (CLI) | payer MEDICARE ==
[~2019-08-18] MED LIST changes: +AMARYL2 MG PO; +FUROSEMIDE20 M1 PO; +HUMULIN 70100 UNIT/1 SQ; +Ipratropium Brom3 ML INH; +LEXAPRO10 MG PO; +MACROBID100 M1 PO; +PROAIR HFA8.5 GM INH; +TIZANIDINE HCL2 MG PO; +ZOLPIDEM TART10 MG PO
[2019-08-18 14:22] LABS: BASO % 0.4 % (0.0-1.0); EOS # 0.2 10*3/uL (0.0-0.4); EOS % 2.5 % (1.0-4.0); HEMATOCRIT 36.4 % (37.0-47.0); HEMOGLOBIN 11.3 g/dl (12.0-16.0); LYMPH # 1.9 10*3/uL (1.3-4.4); LYMPH % 21.1 % (27.0-41.0); MEAN CELL VOLUME 91.7 fl (81.0-99.0); MEAN CORPUSCULAR HGB 28.5 pg (27.0-31.0); MEAN PLATELET VOLUME 10.1 fl (9.6-12.3); MONO # 0.6 10*3/uL (0.1-1.0); NEUT # 6.2 10*3/uL (2.3-7.9); PLATELET COUNT AUTOMATED 234 10*3/uL (130-400); RED BLOOD COUNT 3.97 10*6/uL (4.10-5.10); RED CELL DISTRI WIDTH 14.6 % (0-14.5); WHITE BLOOD COUNT 9.1 10*3/uL (4.8-10.8)
[2019-08-18 14:38] LABS: ALBUMIN 3.2 gm/dl (3.1-4.5); CREATININE 1.12 mg/dL (0.55-1.02); POTASSIUM 4.3 mmol/L (3.5-5.1); TOTAL PROTEIN 7.4 gm/dL (6.4-8.2)
[2019-08-18 14:44] LABS: THYROID STIM HORMONE (HS) 1.7 uIU/ml (0.358-4.75)
[2019-08-18 15:17] LABS: VITAMIN D, 25-HYDROXY 21.3 ng/mL (30-100)
== END | disposition home or self-care (01) ==
LOC: LAB 13:52
PROVIDERS: Internal Medicine
DX: R06.02 Shortness of breath (principal); I10 Essential (primary) hypertension; E11.9 Type 2 diabetes mellitus without complications; E55.9 Vitamin D deficiency, unspecified; E78.2 Mixed hyperlipidemia

== ENCOUNTER 2019-09-09 18:06 | Inpatient (IN) | payer MEDICARE ==
[~2019-09-09] VITALS: Ht 165.1 cm; Wt 121.2 kg
[2019-09-09] VITALS (9 sets, daily range): BP systolic 130–170; BP diastolic 68–76
[2019-09-09 18:21] LABS: BASO # 0.1 10*3/uL (0.0-0.1); BASO % 0.6 % (0.0-1.0); EOS # 0.2 10*3/uL (0.0-0.4); EOS % 2.5 % (1.0-4.0); HEMATOCRIT 39.4 % (37.0-47.0); HEMOGLOBIN 12.3 g/dl (12.0-16.0); LYMPH # 1.9 10*3/uL (1.3-4.4); LYMPH % 19.7 % (27.0-41.0); MEAN CELL VOLUME 91.2 fl (81.0-99.0); MEAN CORPUSCULAR HGB 28.5 pg (27.0-31.0); MEAN CORPUSCULAR HGB CONC 31.2 g/dl (33.0-37.0); MEAN PLATELET VOLUME 9.8 fl (9.6-12.3); MONO # 0.7 10*3/uL (0.1-1.0); MONO % 7.2 % (3.0-9.0); NEUT # 6.7 10*3/uL (2.3-7.9); NEUT % 69.1 % (47.0-73.0); PLATELET COUNT AUTOMATED 256 10*3/uL (130-400); RED BLOOD COUNT 4.32 10*6/uL (4.10-5.10); RED CELL DISTRI WIDTH 14.6 % (0-14.5); WHITE BLOOD COUNT 9.7 10*3/uL (4.8-10.8)
[2019-09-09 18:30] LABS: INTERNATIONAL NORM RATIO 0.9 (2.0-3.5)
[2019-09-09 18:38] LABS: ALBUMIN 3.3 gm/dl (3.1-4.5); ALKALINE PHOSPHATASE 84 U/L (45-117); BUN 16 mg/dl (7-24); CHLORIDE 102 mmol/L (98-107); CREATININE 0.96 mg/dL (0.55-1.02); SGOT/AST 25 IU/L (3-35); SGPT/ALT 28 U/L (12-78); SODIUM 137 mmol/L (136-145); TOTAL PROTEIN 7.6 gm/dL (6.4-8.2)
[2019-09-09 18:40] LABS: TROPONIN I < 0.015 ng/ml (<0.045)
--- NOTE | 2019-09-09 19:04 | NUR ---
NURSE TO NURSE REPORT GIVEN TO THIS RN.
--- NOTE | 2019-09-09 19:08 | NUR ---
PT REPORTS SHE IS FEELING SOB,RA O2 96%.PT PLACED ON 2L 02 VIA NC BY AMINA MANUEL FOR COMFORT.PT REPORTS PAIN IN LEFT SHOULDER AND IS REQUESTING PAIN MEDICATION. NOTIFIED.
--- NOTE | 2019-09-09 20:08 | NUR ---
PT MEDICATED WITH 1 NITRO STAT TAB SL PER EMAR.PT RATES PAIN IN LEFT CHEST RADIATING TO UPPER LEFT SHOULDER AND NECK.PAIN 10/10.
--- NOTE | 2019-09-09 20:22 | NUR ---
PT REPORTS PAIN UNRESOLVED WITH 1ST NITRO TAB.BP 130/74, HR 80.PAIN IS STILL 10/10.PT PROVIDED SECOND NITRO STAT TAB SL.
--- NOTE | 2019-09-09 20:27 | NUR ---
PT DENIES ANY OPEN WOUNDS OR SORES.
--- NOTE | 2019-09-09 20:28 | NUR ---
MD DRAKE AT BEDSIDE TO DISCUSS PT PLAN OF CARE.
--- NOTE | 2019-09-09 20:47 | NUR ---
PT NOT MEDICATED WITH 3RD DOSE OF NITRO PER MD.PT REPORTS PAIN IS 10/10.PT MEDICATED PER EMAR WITH MORPHINE AND VITALS REASSESSED.
--- NOTE | 2019-09-09 21:19 | NUR ---
PT REPORTS SOME PAIN RELIEF AFTER MEDICATION OF MORPHINE.PAIN 02/21 NOW.
--- NOTE | 2019-09-09 22:13 | NUR ---
A 64, admitted to , under the services of Dr. STAR EDGAR,FERNANDO Beaver with a diagnosis of CHEST PAIN. Chief complaint is CHEST PAIN. Patient arrived via stretcher from ER. Monitor applied. Initial assessment completed. Vital signs taken and recorded. DR. STAR EDGAR,FERNANDO Beaver notified of admission to the unit. Orders received. See assessment for past medical history, medications and allergies. Patient and/or family oriented to unit. [facility] visitation policy reviewed. Clothing/patient valuable form completed. HUYEN KENNY
[2019-09-09] MEDS ORDERED: HYDROCODONE-AC1 EACH PO (22:26)
[2019-09-09] MEDS ORDERED: LAMOTRIGINE100 MG PO (22:28)
[2019-09-09] MEDS ORDERED: APRESOLINE25 MG PO (22:31)
--- NOTE | 2019-09-09 22:50 | NUR ---
SPOKE WITH DR GRAVES, ORDERS TAKEN
--- NOTE | 2019-09-10 02:37 | NUR ---
MEDICATED WITH PRN MORPHINE FOR C/O CHEST PAIN RATED 7/10 ON A 0/10 PAIN SCALE
[2019-09-10 04:00] VITALS: BP 156/68
--- NOTE | 2019-09-10 08:00 | NUR ---
Power Plant Inspector in to talk to patient. Patient states lives at home alone with her family checking in on her. There are 0 steps in the home. Physician: Dr. Vibha Maldonado [facility]acy: [facility] Home health services: none Patient's level of ADLs: INDEPENDENT Patient has working utilities: yes DME: O2 @ 2L [place] at [facility], nebulizer, unknown O2 supplier because she states they just switched companies Follow-up physician's appointment after d/c: she prefers to make her own follow up appt after discharge Does patient want to access PORTAL?: no Discharge plan discussed with patient. She lives at home alone with her family checking in on her. She is independent in her ADLs and ambulation. Discussed home health care services and she denies any home needs at this time. When medically stable she will be discharged to home. Her daughter will provide transportation on discharge. She is scheduled for stress test this morning. EMMANUEL HANNA
--- NOTE | 2019-09-10 08:42 | NUR ---
PATIENT OFF FLOOR FOR STRESS TEST.
--- NOTE | 2019-09-10 09:00 | NUR ---
INFORMED CONSENT OBTAINED FOR A LEXISCAN STRESS TEST WITH DR. GRAVES. RESTING EKG NSR WITH A HT RT OF 71, AND BP OF 142/86. CLEAR BREATH SOUNDS WITH A SPO2 OF 92% VIA RA. COMPLETED ONE MINUTE OF A LEXISCAN PROTOCOL RECEIVING LEXISCAN 0.4 MG OVER 10 SECONDS. DEVELOPED AN "ODD FEELING" THAT WAS RELIEVED IN RECOVERY. HAD A PEAK HT RT OF 87, WITH A BP OF 140/62. LAST RECOVERY HT RT OF 78, WITH A BP OF 142/68. AWAITING NUCLEAR IMAGING IN STABLE CONDITION.
[2019-09-10 12:00] VITALS: BP 149/68
--- NOTE | 2019-09-10 15:13 | NUR ---
DR. PANIAGUA SAW PATIENT AND STATED THAT SHE MAY BE DISCHARGED AND RECOMMENDED OUTPATIENT PT/OT AND TO CALL DR. PANIAGUA'S OFFICE TO FOLLOW UP OUTPATIENT
--- NOTE | 2019-09-10 15:32 | NUR ---
IN TO ASSESS PATIENT. NO COMPLAINTS AT THIS TIME. EXPLAINED TO PATIENT THAT DR. PNAIAGUA STATED THAT SHE MAY LEAVE LONG CARDIAC STRESS IS OK. EXPLAINED TO PATIENT THAT DR. PANIAGUA WOULD LIKE HER TO FOLLOW UP WITH HER OUTPATIENT AND RECOMMENDS PT/OT OUTPATIENT FOR PAIN IN THE ARM.
[2019-09-10 16:00] VITALS: BP 138/60
--- NOTE | 2019-09-10 16:21 | NUR ---
SPOKE WITH DR. HERNANDEZ AT THIS TIME PERTAINING TO PATIENTS STRESS TEST. HE STATED HE WOULD SWING BY AND SEE THE PATIENT THIS EVENING AND SPEAK WITH HER
--- NOTE | 2019-09-10 17:33 | NUR ---
JUST SPOKE WITH DR. HERNANDEZ. STATES HE WOULD BE IN TO SEE THE PATIENT IN ABOUT AN HOUR AND A HALF
--- NOTE | 2019-09-10 17:41 | NUR ---
NOTIFIED DR. GRAVES OF DR. HERNANDEZ COMING IN TO SEE PATIENT HE STATED IN AN HOUR AND HALF. ALSO NOTIFIED HIM THAT PATIENTS MORPHINE IS Q6H, BUT IS REQUESTING A DOSE NOW FOR PAIN. HE STATED IT WAS OK TO GIVE A DOSE NOW
--- NOTE | 2019-09-10 19:15 | NUR ---
DR. HERNANDEZ IN TO SEE PATIENT. STATED THAT PATIENT MAY BE DISCHARGED BUT SHE NEEDS TO CALL AND MAKE A FOLLOW UP APPOINTMENT WITH HIM DUE TO A POSITIVE STRESS TEST. HE STATED FOR THE PATIENT TO CALL HIS OFFICE ON SUNDAY AND TELL THEM SHE HAD A POSITIVE STRESS TEST AND TO GET AN APPOINTMENT.
--- NOTE | 2019-09-10 19:17 | NUR ---
NOITIFIED DR. GRAVES THAT DR. HERNANDEZ CLEARED THE PATIENT FOR DISCHARGE
--- NOTE | 2019-09-10 19:34 | NUR ---
PATIENT DISCHARGED AT THIS TIME IN CARE OF FRIEND. IV AND MONITOR REMOVED. CLOTHING SLIP SIGNED. PATIENT AMBULATORY OUT OF BUILDING
== END 2019-09-10 19:34 | disposition home or self-care (01) | DRG 313 ==
LOC: ED 18:06 → EDHOLD 21:06 → 4E 21:06
PROVIDERS: Emergency Medicine; ADMIT Internal Medicine
PROC: 3E073KZ Introduction of Other Diagnostic Substance into Coronary Artery, Percutaneous Approach (ICD-10-PCS; principal; 2019-09-10)
PROC: 4A02XM4 Measurement of Cardiac Total Activity, External Approach (ICD-10-PCS; principal; 2019-09-10)
DX: R07.89 Other chest pain (principal); Z68.41 Body mass index [BMI] 40.0-44.9, adult; M25.512 Pain in left shoulder; E11.9 Type 2 diabetes mellitus without complications; I50.9 Heart failure, unspecified; I25.10 Atherosclerotic heart disease of native coronary artery without angina pectoris; E66.01 Morbid (severe) obesity due to excess calories; E78.2 Mixed hyperlipidemia; F41.1 Generalized anxiety disorder; G89.29 Other chronic pain; I11.0 Hypertensive heart disease with heart failure; M54.9 Dorsalgia, unspecified; K21.0 Gastro-esophageal reflux disease with esophagitis; J43.2 Centrilobular emphysema; G47.30 Sleep apnea, unspecified; I25.9 Chronic ischemic heart disease, unspecified; F32.9 Major depressive disorder, single episode, unspecified; Z79.899 Other long term (current) drug therapy; Z87.440 Personal history of urinary (tract) infections; Z88.0 Allergy status to penicillin; Z91.041 Radiographic dye allergy status; Z90.49 Acquired absence of other specified parts of digestive tract; Z90.710 Acquired absence of both cervix and uterus; Z98.51 Tubal ligation status; Z95.5 Presence of coronary angioplasty implant and graft; Z82.49 Family history of ischemic heart disease and other diseases of the circulatory system; Z83.3 Family history of diabetes mellitus; Z80.8 Family history of malignant neoplasm of other organs or systems; Z79.84 Long term (current) use of oral hypoglycemic drugs

== ENCOUNTER → 2019-10-14 | Outpatient (CLI) | payer MEDICARE ==
[~2019-10-14] MED LIST changes: +APRESOLINE25 MG PO; +HYDROCODONE-AC1 EACH PO; +LAMOTRIGINE100 MG PO
[2019-10-14 14:23] LABS: CREATININE 1.19 mg/dL (0.55-1.02); POTASSIUM 4.6 mmol/L (3.5-5.1)
== END | disposition home or self-care (01) ==
LOC: LAB 12:50
PROVIDERS: Internal Medicine
DX: N18.9 Chronic kidney disease, unspecified (principal)

== ENCOUNTER 2020-03-15 18:46 | Emergency (ER) | payer OTHER ==
[~2020-03-15] VITALS: Ht 165.1 cm; Wt 115.7 kg
[2020-03-15 18:51] VITALS: BP 170/87
[2020-03-15 20:25] LABS: ALKALINE PHOSPHATASE 67 U/L (45-117); BUN 16 mg/dl (7-24); CHLORIDE 103 mmol/L (98-107); POTASSIUM 3.9 mmol/L (3.5-5.1); SGPT/ALT 24 U/L (12-78); SODIUM 140 mmol/L (136-145); TOTAL PROTEIN 7.4 gm/dL (6.4-8.2)
[2020-03-15 20:35] LABS: SGOT/AST 25 IU/L (3-35)
[2020-03-15 20:44] LABS: CLARITY CLEAR (CLEAR); COLOR YELLOW (YELLOW)
[2020-03-15 20:45] LABS: BASO # 0.1 10*3/uL (0.0-0.1); BASO % 0.7 % (0.0-1.0); EOS # 0.3 10*3/uL (0.0-0.4); EOS % 3.3 % (1.0-4.0); HEMATOCRIT 38.5 % (37.0-47.0); LYMPH # 1.9 10*3/uL (1.3-4.4); LYMPH % 21.9 % (27.0-41.0); MEAN CELL VOLUME 89.3 fl (81.0-99.0); MEAN CORPUSCULAR HGB 28.3 pg (27.0-31.0); MEAN CORPUSCULAR HGB CONC 31.7 g/dl (33.0-37.0); MEAN PLATELET VOLUME 9.5 fl (9.6-12.3); MONO # 0.7 10*3/uL (0.1-1.0); MONO % 8.4 % (3.0-9.0); NEUT # 5.5 10*3/uL (2.3-7.9); NEUT % 64.9 % (47.0-73.0); PLATELET COUNT AUTOMATED 235 10*3/uL (130-400); RED BLOOD COUNT 4.31 10*6/uL (4.10-5.10); RED CELL DISTRI WIDTH 15.8 % (0-14.5); WHITE BLOOD COUNT 8.5 10*3/uL (4.8-10.8)
[2020-03-15 20:45] LABS: BILIRUBIN NEGATIVE (NEGATIVE); BLOOD NEGATIVE (NEGATIVE); GLUCOSE NEGATIVE (NEGATIVE); KETONE NEGATIVE (NEGATIVE); LEUKO ESTERASE NEGATIVE (NEGATIVE); NITRITE NEGATIVE (NEGATIVE); UROBILINOGEN 0.2 E.U./dl (0.2-1.0)
[2020-03-15 20:50] LABS: BACTERIA 2+; RBC 0-2 rbc/hpf (0-2); WBC 0-2 wbc/hpf (0-5)
[2020-03-15] MEDS ORDERED: Orphenadrine C100 MG PO (22:37)
[2020-03-15] MEDS ORDERED: MACROBID100 M1 PO (22:55)
== END 2020-03-15 22:44 | disposition home or self-care (01) ==
LOC: ED 18:46
PROVIDERS: Emergency Medicine
DX: M54.41 Lumbago with sciatica, right side (principal); N39.0 Urinary tract infection, site not specified; I25.10 Atherosclerotic heart disease of native coronary artery without angina pectoris; I10 Essential (primary) hypertension; K21.9 Gastro-esophageal reflux disease without esophagitis; E11.9 Type 2 diabetes mellitus without complications; J44.9 Chronic obstructive pulmonary disease, unspecified; E78.00 Pure hypercholesterolemia, unspecified; Z79.899 Other long term (current) drug therapy; Z79.4 Long term (current) use of insulin; Z91.041 Radiographic dye allergy status; Z88.0 Allergy status to penicillin

== ENCOUNTER 2020-03-29 17:11 | Inpatient (IN) | payer OTHER ==
[~2020-03-29] VITALS: Ht 165.1 cm; Wt 127.7 kg
[~2020-03-29 17:11] MED LIST changes: +Orphenadrine C100 MG PO
[2020-03-29 17:17] VITALS: BP 151/114
[2020-03-29 20:07] LABS: BASO # 0.1 10*3/uL (0.0-0.1); BASO % 0.5 % (0.0-1.0); EOS # 0.4 10*3/uL (0.0-0.4); EOS % 3.3 % (1.0-4.0); HEMATOCRIT 37.2 % (37.0-47.0); LYMPH # 2.3 10*3/uL (1.3-4.4); LYMPH % 20.6 % (27.0-41.0); MEAN CELL VOLUME 92.3 fl (81.0-99.0); MEAN CORPUSCULAR HGB 27.5 pg (27.0-31.0); MEAN CORPUSCULAR HGB CONC 29.8 g/dl (33.0-37.0); MEAN PLATELET VOLUME 9.6 fl (9.6-12.3); MONO % 9.3 % (3.0-9.0); NEUT # 7.2 10*3/uL (2.3-7.9); NEUT % 65.7 % (47.0-73.0); PLATELET COUNT AUTOMATED 210 10*3/uL (130-400); RED BLOOD COUNT 4.03 10*6/uL (4.10-5.10); RED CELL DISTRI WIDTH 15.9 % (0-14.5); WHITE BLOOD COUNT 10.9 10*3/uL (4.8-10.8)
[2020-03-29 20:24] LABS: ALBUMIN 3.1 gm/dl (3.1-4.5); ALKALINE PHOSPHATASE 67 U/L (45-117); BUN 19 mg/dl (7-24); CHLORIDE 102 mmol/L (98-107); CREATININE 1.09 mg/dL (0.55-1.02); SGOT/AST 16 IU/L (3-35); SGPT/ALT 24 U/L (12-78); SODIUM 138 mmol/L (136-145); TOTAL PROTEIN 7.7 gm/dL (6.4-8.2)
[2020-03-29 20:45] VITALS: BP 166/80
[2020-03-29 22:10] VITALS: BP 182/71
[2020-03-29] MEDS ORDERED: ESCITALOPRAM OX20 MG PO (22:23)
[2020-03-29] MEDS ORDERED: OMEPRAZOLE MAGN20 MG PO (22:24)
[2020-03-29] MEDS ORDERED: ATARAX,VISTARIL50 MG PO (22:25)
[2020-03-29] MEDS ORDERED: LEVEMIR100 UNIT/1 SQ (22:26)
[2020-03-30] VITALS: BP 141/64; BP 162/90
[2020-03-30 04:00] VITALS: BP 112/60
[2020-03-30 08:00] VITALS: BP 112/94
[2020-03-30 11:55] VITALS: BP 122/57
[2020-03-30 16:00] VITALS: BP 126/63
[2020-03-30 20:00] VITALS: BP 127/57
[2020-03-31] VITALS: BP 152/66
[2020-03-31 08:00] VITALS: BP 106/69
[2020-03-31 12:00] VITALS: BP 104/62
[2020-03-31 16:00] VITALS: BP 121/60
[2020-03-31 20:00] VITALS: BP 154/70
[2020-04-01] VITALS: BP 149/83
[2020-04-01 06:03] LABS: CREATININE 1.19 mg/dL (0.55-1.02)
[2020-04-01 08:00] VITALS: BP 140/54
[2020-04-01 12:00] VITALS: BP 125/63
[2020-04-01 16:00] VITALS: BP 136/62
[2020-04-01 20:00] VITALS: BP 132/56
[2020-04-02] VITALS: BP 184/67
[2020-04-02 08:00] VITALS: BP 128/47
[2020-04-02 12:00] VITALS: BP 141/65
[2020-04-02] MEDS ORDERED: DOXYCYCLINE100 MG PO (13:08)
[2020-04-02 16:00] VITALS: BP 140/71
[2020-04-02 20:00] VITALS: BP 153/67
[2020-04-03] VITALS: BP 151/59
[2020-04-03 08:00] VITALS: BP 132/54
== END 2020-04-03 11:20 | disposition home or self-care (01) | DRG 603 ==
LOC: ED 17:11 → 4E 20:40 → EDHOLD 20:40 → 4E 21:24
PROVIDERS: Physician Assistant; ADMIT Internal Medicine
DX: L03.115 Cellulitis of right lower limb (principal); Z68.42 Body mass index [BMI] 45.0-49.9, adult; E66.01 Morbid (severe) obesity due to excess calories; I10 Essential (primary) hypertension; K21.0 Gastro-esophageal reflux disease with esophagitis; F41.1 Generalized anxiety disorder; E11.9 Type 2 diabetes mellitus without complications; I25.10 Atherosclerotic heart disease of native coronary artery without angina pectoris; G89.29 Other chronic pain; M54.9 Dorsalgia, unspecified; Z79.899 Other long term (current) drug therapy; Z88.0 Allergy status to penicillin; Z91.041 Radiographic dye allergy status; Z90.49 Acquired absence of other specified parts of digestive tract; Z90.710 Acquired absence of both cervix and uterus; Z95.5 Presence of coronary angioplasty implant and graft; Z98.51 Tubal ligation status

== ENCOUNTER → 2020-05-26 | Outpatient (CLI) | payer OTHER ==
[~2020-05-26] MED LIST changes: +ATARAX,VISTARIL50 MG PO; +DOXYCYCLINE100 MG PO; +ESCITALOPRAM OX20 MG PO; +LEVEMIR100 UNIT/1 SQ; +OMEPRAZOLE MAGN20 MG PO
== END | disposition home or self-care (01) ==
LOC: US 16:09
DX: M79.606 Pain in leg, unspecified (principal); R22.42 Localized swelling, mass and lump, left lower limb

== ENCOUNTER 2020-07-24 16:21 | Observation (INO) | payer OTHER ==
[~2020-07-24] VITALS: Ht 165.1 cm; Wt 133.1 kg
[2020-07-24 16:36] VITALS: BP 139/65
[2020-07-24 17:35] VITALS: BP 140/65
[2020-07-24 18:45] VITALS: BP 140/64
[2020-07-24 19:06] LABS: BASO % 0.4 % (0.0-1.0); EOS # 0.2 10*3/uL (0.0-0.4); EOS % 2.3 % (1.0-4.0); LYMPH # 1.6 10*3/uL (1.3-4.4); LYMPH % 17.2 % (27.0-41.0); MEAN CELL VOLUME 90.5 fl (81.0-99.0); MEAN CORPUSCULAR HGB 27.6 pg (27.0-31.0); MEAN CORPUSCULAR HGB CONC 30.5 g/dl (33.0-37.0); MEAN PLATELET VOLUME 9.7 fl (9.6-12.3); MONO # 0.9 10*3/uL (0.1-1.0); MONO % 9.1 % (3.0-9.0); NEUT # 6.7 10*3/uL (2.3-7.9); NEUT % 70.4 % (47.0-73.0); PLATELET COUNT AUTOMATED 255 10*3/uL (130-400); RED BLOOD COUNT 4.09 10*6/uL (4.10-5.10); RED CELL DISTRI WIDTH 15.1 % (0-14.5); WHITE BLOOD COUNT 9.5 10*3/uL (4.8-10.8)
[2020-07-24 19:19] LABS: ACT PARTIAL THROMBO TIME 26.2 SECONDS (20.0-32.1)
[2020-07-24 19:30] VITALS: BP 138/64
[2020-07-24 19:36] LABS: ALBUMIN 3.2 gm/dl (3.1-4.5); ALKALINE PHOSPHATASE 67 U/L (45-117); BUN 14 mg/dl (7-24); CHLORIDE 105 mmol/L (98-107); CREATININE 1.13 mg/dL (0.55-1.02); LIPASE 23 U/L (73-393); SGOT/AST 27 IU/L (3-35); SGPT/ALT 30 U/L (12-78); SODIUM 141 mmol/L (136-145); TOTAL PROTEIN 7.6 gm/dL (6.4-8.2)
[2020-07-24 19:37] LABS: TROPONIN I < 0.015 ng/ml (<0.045)
[2020-07-24 20:45] VITALS: BP 138/60
--- NOTE | 2020-07-24 20:45 | NUR ---
NURSE TO NURSE REPORT GIVEN TO THIS RN.PT AWAITING CTA, PT RECEIVED SOLUCORTEX AND NEEDS TO WAIT 3HR PRIOR TO RECEIVING CTA.PT RESTING COMFORTABLY AT THIS TIME.BENADRYL TO BE GIVEN 1 HR PRIOR TO RECEVING CTA.
[2020-07-24 21:12] LABS: BILIRUBIN Negative (Negative); BLOOD Negative (Negative); CLARITY Cloudy (Clear); COLOR Yellow (Yellow); GLUCOSE Negative (Negative); KETONE Negative (Negative); LEUKO ESTERASE Negative (Negative); NITRITE Negative (Negative); PH 7.5 (4.5-8.0)
[2020-07-24 21:27] LABS: RBC 0-2 rbc/hpf (0-2); WBC 0-2 wbc/hpf (0-5)
[2020-07-24 21:28] LABS: BACTERIA 1+
[2020-07-24 21:29] LABS: EPITHELIAL CELLS TNTC
--- NOTE | 2020-07-24 22:33 | NUR ---
THIS RN MEDICATED WITH 4MG ZOFRAN IVP, FLUIDS PLACED ON PUMP @ 250ML/HR.
[2020-07-24 22:34] VITALS: BP 134/66
--- NOTE | 2020-07-24 22:37 | NUR ---
BLOOD PREESURE REASSESSED PRIOR TO ADMINISTRATION ORDER OF MORPHINE IN EMAR.BP 134/66.O2 SAT 89% RA.PT STATES SHE USES 2L O2 AT NIGHT.PT PLACED ON 2L O2 VIA NC.
--- NOTE | 2020-07-24 22:45 | NUR ---
IV SITE APPEARS TO HAVE SOME PUFFINESS, PT DENIES ANY PAIN AT SITE.FLUIDS STOPPED AT THIS TIME.
--- NOTE | 2020-07-24 23:03 | NUR ---
AMINA HAMMER AT BEDSIDE TO ATTEMPT NEW IV SITE.
--- NOTE | 2020-07-24 23:28 | NUR ---
NEW IV ESTABLISHED PT RAC WITH 22GAUGE ANGIOCATH BY AMINA Warren. PT MEDICATED PER EMAR WITH MORPHINE AND NS INFUSING @ 250ML/HR.
--- NOTE | 2020-07-24 23:30 | NUR ---
CT NOTIFIED OF AMDINISTRATION OF IV BENADRYL.PT TO HAVE CT COMPLETED APPROX 1 HR AFTER ADMINISTRATION.
[2020-07-25] VITALS (8 sets, daily range): BP systolic 126–160; BP diastolic 44–74
--- NOTE | 2020-07-25 00:42 | NUR ---
PT REPORTS PAIN IN NECK/BACK IS A LITTLE BIT BETTER.
--- NOTE | 2020-07-25 00:43 | NUR ---
PT DENIES ANY OPEN WOUNDS SORES OR CUTS AT THIS TIME.
[2020-07-25] MEDS ORDERED: BUMETANIDE1 MG PO (00:46)
--- NOTE | 2020-07-25 00:51 | NUR ---
PT TO CT VIA STRETCHER AT THIS TIME.
[2020-07-25] MEDS ORDERED: GLIMEPIRIDE2 MG PO (01:00)
[2020-07-25] MEDS ORDERED: ZOLPIDEM10 MG PO (01:03)
--- NOTE | 2020-07-25 01:42 | NUR ---
PT RETURNED FROM CT VIA STRETCHER.VITALS REASSESSED.FLUIDS CONTINUE @ 250ML/HR.PT REPOSITIONED IN BED.CALL ROJO IS WITHIN REACH.PT DENIES ANY SIGNS OR SYMPTOMS OF ALLERGIC REACTION AT THIS TIME.
--- NOTE | 2020-07-25 04:02 | NUR ---
PT REVITALED.PT PROVIDED HOSPITAL BED FROM THE FLOOR.CALL ROJO IS WITHIN REACH.HEPLOCK IN PLACE.LIGHTS DIMMED FOR COMFORT.PT PROVIDED DRINK OF WATER AND FOOD.
--- NOTE | 2020-07-25 06:05 | NUR ---
SPOKE TO DR GRAVES TO OBTAIN ADMISSION ORDERS. DR GRAVES AWARE PT IS IN ED HOLD 15 UNTIL A BED IS AVAILABLE. ORDERS ENTERED PER .
--- NOTE | 2020-07-25 08:00 | NUR ---
PT COMPLAINING OF RIGHT FLANK PAIN. REQUESTING SOMETHING FOR PAIN.
--- NOTE | 2020-07-25 08:35 | NUR ---
NORCO PRN ORDERED BY DR GRAVES. WILL BE ADMINISTERED.
--- NOTE | 2020-07-25 13:01 | NUR ---
PT RESTING IN BED WITH EYES OPEN, PT EATING LUNCH, NO DISTRESS NOTED, FLOOR MEDS ADMINISTERED, RN WILL CONTINUE TO MONITOR
--- NOTE | 2020-07-25 13:50 | NUR ---
CALLED FOR TRANSPORT, NURSE ON LUNCH
--- NOTE | 2020-07-25 14:12 | NUR ---
A 65, admitted to , under the services of Dr. STAR EDGAR,FERNANDO Beavre with a diagnosis of SYNCOPE. Chief complaint is FALL @ HOME. Patient arrived via bed from ER. Monitor applied. Initial assessment completed. Vital signs taken and recorded. DR. STAR EDGAR,FERNANDO Beaver notified of admission to the unit. Orders received. See assessment for past medical history, medications and allergies. Patient and/or family oriented to unit. [facility] visitation policy reviewed. Clothing/patient valuable form completed. ALIS SIERRA
--- NOTE | 2020-07-25 14:38 | NUR ---
PT C/O LOWER BACK PAIN 03/24. MEDICATED WITH NORCO PER PRN ORDER FOR PAIN. WILL MONITOR FOR EFFECTIVENESS.
--- NOTE | 2020-07-25 15:38 | NUR ---
PER PATIENT, PRN NORCO HAS BEEN EFFECTIVE. NO FURTHER COMPLAINTS AT THIS TIME.
--- NOTE | 2020-07-25 20:17 | NUR ---
NORCO GIVEN PER C/O HEADACHE RATED 9/10. WILL REASSESS. ENCOURAGED TO CALL FOR HELP IF NEEDED, CALL LIGHT IN REACH.
--- NOTE | 2020-07-25 21:17 | NUR ---
NORCO EFFECTIVE FOR PAIN PER PT
[2020-07-26] VITALS: BP 120/58; BP 136/49
[2020-07-26 08:00] VITALS: BP 124/65
[2020-07-26 12:00] VITALS: BP 153/60
--- NOTE | 2020-07-26 12:08 | NUR ---
Pulmonary Function Technician in to talk to patient. Patient states lives at home alone with her family checking in on her. There are 0 steps in the home. Physician: Dr. Vibha Maldonado [facility] Home health services: none Patient's level of ADLs: INDEPENDENT Patient has working utilities: yes DME: O2 @ 2L [place] at [facility], nebulizer, O2 supplier unknown. She states they just switched companies. Follow-up physician's appointment after d/c: she prefers to make her own follow up appt after discharge Does patient want to access PORTAL?: no Discharge plan discussed with patient. She lives at home alone with her family checking in on her. She is independent in her ADLs and ambulation. Discussed home health care services and she declines. CM will continue to follow for any discharge planning needs. When medically stable she will be discharged to home. She states her daughter will provide transportation upon discharge. EMMANUEL HANNA
--- NOTE | 2020-07-26 16:10 | NUR ---
Nursing screen received and chart reviewed. Patient admitted with syncope and fall. If patient should have a decline in ADLS from baseline then refer to OT for further assessment. Thank you. Lynda Pierce OTR/l
--- NOTE | 2020-07-26 16:38 | NUR ---
PT DISCHARGED TO HOME. PT VERBALIZES UNDERSTANDING OF DISCHARGE ORDERS. MONITOR REMOVED, IV REMOVED, SITE SECURE WITH 2X2 AND TAPE, NO BLEEDING FROM THE SITE.
== END 2020-07-26 16:38 | disposition home or self-care (01) ==
LOC: ED 16:21 → EDHOLD 07-25 02:52 → 4E 07-25 02:52
PROVIDERS: Physician Assistant; ADMIT Internal Medicine; ATTEND Internal Medicine
DX: R55 Syncope and collapse (principal); E11.9 Type 2 diabetes mellitus without complications; I10 Essential (primary) hypertension; F41.1 Generalized anxiety disorder; I25.10 Atherosclerotic heart disease of native coronary artery without angina pectoris; M54.9 Dorsalgia, unspecified; G89.29 Other chronic pain; E78.2 Mixed hyperlipidemia; E66.01 Morbid (severe) obesity due to excess calories; Z68.42 Body mass index [BMI] 45.0-49.9, adult

== ENCOUNTER → 2020-12-16 | Outpatient (CLI) | payer OTHER ==
[~2020-12-16] MED LIST changes: +BUMETANIDE1 MG PO; +CARVEDILOL25 MG PO; +DICLOFENAC SOD100 G1 T; +GLIMEPIRIDE2 MG PO; +HYDRALAZINE HYD50 MG PO; +METHOCARBAMOL750 M1 PO; +VITAMIN D350 MCG PO; +ZOLPIDEM10 MG PO
[2020-12-16 08:46] LABS: BASO # 0.1 10*3/uL (0.0-0.1); BASO % 0.6 % (0.0-1.0); EOS # 0.2 10*3/uL (0.0-0.4); EOS % 2.8 % (1.0-4.0); HEMATOCRIT 36.9 % (37.0-47.0); LYMPH # 2.4 10*3/uL (1.3-4.4); LYMPH % 27.7 % (27.0-41.0); MEAN CELL VOLUME 91.1 fl (81.0-99.0); MEAN CORPUSCULAR HGB 27.4 pg (27.0-31.0); MEAN CORPUSCULAR HGB CONC 30.1 g/dl (33.0-37.0); MONO # 0.8 10*3/uL (0.1-1.0); MONO % 8.6 % (3.0-9.0); NEUT # 5.2 10*3/uL (2.3-7.9); NEUT % 59.2 % (47.0-73.0); PLATELET COUNT AUTOMATED 263 10*3/uL (130-400); RED BLOOD COUNT 4.05 10*6/uL (4.10-5.10); RED CELL DISTRI WIDTH 15.6 % (0-14.5); WHITE BLOOD COUNT 8.7 10*3/uL (4.8-10.8)
[2020-12-16 08:55] LABS: ALBUMIN 3.1 gm/dl (3.1-4.5); CREATININE 1.5 mg/dL (0.55-1.02); FREE T4 1.09 ng/dl (0.76-1.46); POTASSIUM 4.1 mmol/L (3.5-5.1); TOTAL PROTEIN 7.4 gm/dL (6.4-8.2)
[2020-12-16 09:00] LABS: THYROID STIM HORMONE (HS) 2.82 uIU/ml (0.358-4.75)
[2020-12-16 10:50] LABS: VITAMIN D, 25-HYDROXY 23.9 ng/mL (30-100)
== END | disposition home or self-care (01) ==
LOC: MAMMO 07:30 → LAB 07:40
PROVIDERS: ATTEND Internal Medicine
DX: Z12.31 Encounter for screening mammogram for malignant neoplasm of breast (principal); I10 Essential (primary) hypertension; E11.65 Type 2 diabetes mellitus with hyperglycemia; E78.5 Hyperlipidemia, unspecified; E55.9 Vitamin D deficiency, unspecified; N64.89 Other specified disorders of breast; Z00.00 Encounter for general adult medical examination without abnormal findings

== ENCOUNTER 2021-01-23 20:42 | Observation (INO) | payer OTHER ==
[~2021-01-23] VITALS: Ht 165.1 cm; Wt 125.8 kg
[~2021-01-23 20:42] MED LIST changes: -CARVEDILOL25 MG PO; -DICLOFENAC SOD100 G1 T; -HYDRALAZINE HYD50 MG PO; -METHOCARBAMOL750 M1 PO; -VITAMIN D350 MCG PO
[2021-01-23 20:59] VITALS: BP 146/49
[2021-01-23 21:13] VITALS: BP 142/58
[2021-01-23 21:29] LABS: BASO % 0.4 % (0.0-1.0); EOS # 0.2 10*3/uL (0.0-0.4); EOS % 1.9 % (1.0-4.0); HEMATOCRIT 37.3 % (37.0-47.0); LYMPH # 1.4 10*3/uL (1.3-4.4); LYMPH % 13.2 % (27.0-41.0); MEAN CELL VOLUME 88.8 fl (81.0-99.0); MEAN CORPUSCULAR HGB 27.9 pg (27.0-31.0); MEAN CORPUSCULAR HGB CONC 31.4 g/dl (33.0-37.0); MEAN PLATELET VOLUME 9.8 fl (9.6-12.3); MONO # 0.9 10*3/uL (0.1-1.0); MONO % 8.5 % (3.0-9.0); NEUT % 75.4 % (47.0-73.0); PLATELET COUNT AUTOMATED 235 10*3/uL (130-400); RED CELL DISTRI WIDTH 15.4 % (0-14.5); WHITE BLOOD COUNT 10.6 10*3/uL (4.8-10.8)
[2021-01-23 21:39] LABS: ACT PARTIAL THROMBO TIME 25.5 SECONDS (20.0-32.1)
[2021-01-23 21:45] LABS: ALBUMIN 3.3 gm/dl (3.1-4.5); ALKALINE PHOSPHATASE 69 U/L (45-117); BUN 26 mg/dl (7-24); CHLORIDE 101 mmol/L (98-107); CREATININE 1.31 mg/dL (0.55-1.02); SGOT/AST 16 IU/L (3-35); SGPT/ALT 22 U/L (12-78); SODIUM 138 mmol/L (136-145); TOTAL PROTEIN 7.6 gm/dL (6.4-8.2)
[2021-01-23 21:47] LABS: TROPONIN I < 0.015 ng/ml (<0.045)
[2021-01-23 22:02] VITALS: BP 118/58
[2021-01-23 22:44] VITALS: BP 124/62
[2021-01-23 23:45] VITALS: BP 155/61
[2021-01-24] VITALS: BP 155/61
[2021-01-24] MEDS ORDERED: HYDRALAZINE HYD50 MG PO (00:09)
[2021-01-24] MEDS ORDERED: VITAMIN D350 MCG PO (00:14)
[2021-01-24] MEDS ORDERED: CARVEDILOL25 MG PO (00:15)
[2021-01-24] MEDS ORDERED: DICLOFENAC SOD100 G1 T (00:16)
[2021-01-24] MEDS ORDERED: METHOCARBAMOL750 M1 PO (00:17)
[2021-01-24 06:00] VITALS: BP 122/57
[2021-01-24 07:40] VITALS: BP 130/60
[2021-01-24 13:43] VITALS: BP 110/60
[2021-01-24 16:00] VITALS: BP 102/50
[2021-01-24 20:00] VITALS: BP 135/60
[2021-01-25] VITALS: BP 151/60
[2021-01-25 06:00] VITALS: BP 113/70
[2021-01-25 08:00] VITALS: BP 130/50
== END 2021-01-25 11:07 | disposition home or self-care (01) ==
LOC: ED 20:42 → EDHOLD 22:46 → 5E 22:46
PROVIDERS: Emergency Medicine; ADMIT Internal Medicine; ATTEND Internal Medicine
DX: R07.89 Other chest pain (principal); I25.10 Atherosclerotic heart disease of native coronary artery without angina pectoris; E66.01 Morbid (severe) obesity due to excess calories; I10 Essential (primary) hypertension; E11.9 Type 2 diabetes mellitus without complications; E78.2 Mixed hyperlipidemia; F41.1 Generalized anxiety disorder; M54.9 Dorsalgia, unspecified; G89.29 Other chronic pain; R55 Syncope and collapse; Z68.42 Body mass index [BMI] 45.0-49.9, adult

== ENCOUNTER 2021-02-26 13:47 | Emergency (ER) | payer MEDICARE ==
[~2021-02-26 13:47] MED LIST changes: +CARVEDILOL25 MG PO; +DICLOFENAC SOD100 G1 T; +HYDRALAZINE HYD50 MG PO; +METHOCARBAMOL750 M1 PO; +VITAMIN D350 MCG PO
[2021-02-26 14:18] LABS: ABG BASE EXCESS 0.6 mmol/L (-2.0-2.0); ARTERIAL BLOOD GAS PH 7.472 (7.35-7.45); ARTERIAL BLOOD GAS PO2 64.7 (80-90)
[2021-02-26 14:35] LABS: HEMATOCRIT 34.8 % (37.0-47.0); MEAN CELL VOLUME 87.7 fl (81.0-99.0); MEAN CORPUSCULAR HGB CONC 31.9 g/dl (33.0-37.0); PLATELET COUNT AUTOMATED 192 10*3/uL (130-400); RED BLOOD COUNT 3.97 10*6/uL (4.10-5.10); RED CELL DISTRI WIDTH 15.6 % (0-14.5); WHITE BLOOD COUNT 18.9 10*3/uL (4.8-10.8)
[2021-02-26 14:52] LABS: ACT PARTIAL THROMBO TIME 28.2 SECONDS (20.0-32.1)
[2021-02-26 14:54] LABS: ALBUMIN 2.6 gm/dl (3.1-4.5); CREATININE 3.75 mg/dL (0.55-1.02); POTASSIUM 3.7 mmol/L (3.5-5.1)
[2021-02-26 14:59] LABS: TOTAL PROTEIN 7.3 gm/dL (6.4-8.2); TROPONIN I 0.019 ng/ml (<0.045)
[2021-02-26 15:20] LABS: PLATELET SUFFICIENCY NORMAL (NORMAL); TOTAL CELLS COUNTED 100 #CELLS
[2021-02-26 17:23] LABS: ABG BASE EXCESS -3.9 mmol/L (-2.0-2.0); ARTERIAL BLOOD GAS PH 7.349 (7.35-7.45)
[2021-02-26 18:17] LABS: BILIRUBIN Negative (Negative); BLOOD Negative (Negative); CLARITY Cloudy (Clear); COLOR Dark Yellow (Yellow); GLUCOSE Negative (Negative); KETONE Trace (Negative); LEUKO ESTERASE Negative (Negative); NITRITE Negative (Negative); SPECIFIC GRAVITY 1.015 (1.001-1.030); UROBILINOGEN 0.2 E.U./dl (0.0-1.0)
[2021-02-26 18:34] LABS: BACTERIA 2+
[2021-02-26 19:22] VITALS: BP 101/40
== END 2021-02-26 22:49 | disposition short-term general hospital (02) ==
LOC: ED 13:47
PROVIDERS: Emergency Medicine
DX: U07.1 COVID-19 (principal); J96.00 Acute respiratory failure, unspecified whether with hypoxia or hypercapnia; G89.29 Other chronic pain; I25.10 Atherosclerotic heart disease of native coronary artery without angina pectoris; E11.9 Type 2 diabetes mellitus without complications; Z79.899 Other long term (current) drug therapy; Z91.041 Radiographic dye allergy status; Z90.710 Acquired absence of both cervix and uterus; Z98.51 Tubal ligation status; Z90.49 Acquired absence of other specified parts of digestive tract; Z95.5 Presence of coronary angioplasty implant and graft; Z88.0 Allergy status to penicillin

== ENCOUNTER 2021-08-18 18:16 | Emergency (ER) | payer MEDICARE ==
[~2021-08-18] VITALS: Wt 120.2 kg
[2021-08-18 18:52] LABS: BASO # 0.1 10*3/uL (0.0-0.1); BASO % 0.6 % (0.0-1.0); EOS # 0.3 10*3/uL (0.0-0.4); EOS % 2.8 % (1.0-4.0); HEMATOCRIT 36.9 % (37.0-47.0); LYMPH # 2.2 10*3/uL (1.3-4.4); LYMPH % 24.1 % (27.0-41.0); MEAN CELL VOLUME 88.5 fl (81.0-99.0); MEAN CORPUSCULAR HGB 27.6 pg (27.0-31.0); MEAN CORPUSCULAR HGB CONC 31.2 g/dl (33.0-37.0); MEAN PLATELET VOLUME 9.5 fl (9.6-12.3); MONO # 0.8 10*3/uL (0.1-1.0); MONO % 9.1 % (3.0-9.0); NEUT # 5.6 10*3/uL (2.3-7.9); NEUT % 62.5 % (47.0-73.0); PLATELET COUNT AUTOMATED 237 10*3/uL (130-400); RED BLOOD COUNT 4.17 10*6/uL (4.10-5.10); RED CELL DISTRI WIDTH 15.6 % (0-14.5)
[2021-08-18 19:08] LABS: ACT PARTIAL THROMBO TIME 24.3 SECONDS (20.0-32.1)
[2021-08-18 19:11] LABS: ALBUMIN 3.2 gm/dl (3.1-4.5); ALKALINE PHOSPHATASE 73 U/L (45-117); BUN 20 mg/dl (7-24); CHLORIDE 105 mmol/L (98-107); CREATININE 0.98 mg/dL (0.55-1.02); POTASSIUM 4.3 mmol/L (3.5-5.1); SGOT/AST 21 IU/L (3-35); SGPT/ALT 32 U/L (12-78); SODIUM 139 mmol/L (136-145); TOTAL PROTEIN 7.5 gm/dL (6.4-8.2)
[2021-08-18 19:21] LABS: TROPONIN I 0.307 ng/ml (<0.045)
[2021-08-18 23:26] VITALS: BP 145/65
== END 2021-08-19 00:56 | disposition short-term general hospital (02) ==
LOC: ED 18:16
PROVIDERS: Internal Medicine
DX: I21.4 Non-ST elevation (NSTEMI) myocardial infarction (principal); I10 Essential (primary) hypertension; E11.9 Type 2 diabetes mellitus without complications; I25.10 Atherosclerotic heart disease of native coronary artery without angina pectoris; Z88.0 Allergy status to penicillin; Z91.041 Radiographic dye allergy status; Z79.899 Other long term (current) drug therapy

== ENCOUNTER → 2022-01-05 | Outpatient (CLI) | payer OTHER | END | disposition home or self-care (01) | LOC: RAD 13:30 → MAMMO 14:00 | PROVIDERS: ATTEND Internal Medicine | DX: Z12.31 Encounter for screening mammogram for malignant neoplasm of breast (principal); Z78.0 Asymptomatic menopausal state; M85.88 Other specified disorders of bone density and structure, other site ==

== ENCOUNTER → 2022-04-21 | Outpatient (CLI) | payer OTHER ==
[2022-04-21 11:36] LABS: ALKALINE PHOSPHATASE 94 U/L (45-117); BUN 26 mg/dl (7-24); CHLORIDE 101 mmol/L (98-107); POTASSIUM 4.2 mmol/L (3.5-5.1); SGOT/AST 26 IU/L (3-35); SGPT/ALT 31 U/L (12-78); SODIUM 136 mmol/L (136-145); TOTAL PROTEIN 7.4 gm/dL (6.4-8.2)
== END | disposition home or self-care (01) ==
LOC: LAB 10:54
PROVIDERS: ATTEND Internal Medicine
DX: R79.89 Other specified abnormal findings of blood chemistry (principal); Z13.0 Encounter for screening for diseases of the blood and blood-forming organs and certain disorders involving the immune mechanism; Z13.1 Encounter for screening for diabetes mellitus; Z13.21 Encounter for screening for nutritional disorder; Z13.220 Encounter for screening for lipoid disorders; Z13.29 Encounter for screening for other suspected endocrine disorder; Z13.6 Encounter for screening for cardiovascular disorders; Z13.89 Encounter for screening for other disorder; Z13.9 Encounter for screening, unspecified

== ENCOUNTER 2022-05-01 19:19 | Emergency (ER) | payer OTHER ==
[2022-05-01 19:32] VITALS: BP 141/92
[2022-05-01 20:38] LABS: BASO # 0.1 10*3/uL (0.0-0.1); BASO % 0.5 % (0.0-1.0); EOS # 0.2 10*3/uL (0.0-0.4); HEMATOCRIT 40.2 % (37.0-47.0); LYMPH # 1.7 10*3/uL (1.3-4.4); LYMPH % 17.4 % (27.0-41.0); MEAN CELL VOLUME 87.2 fl (81.0-99.0); MEAN CORPUSCULAR HGB 28.6 pg (27.0-31.0); MEAN CORPUSCULAR HGB CONC 32.8 g/dl (33.0-37.0); MEAN PLATELET VOLUME 10.8 fl (9.6-12.3); MONO # 0.8 10*3/uL (0.1-1.0); MONO % 8.3 % (3.0-9.0); NEUT # 7.1 10*3/uL (2.3-7.9); NEUT % 71.2 % (47.0-73.0); PLATELET COUNT AUTOMATED 264 10*3/uL (130-400); RED BLOOD COUNT 4.61 10*6/uL (4.10-5.10)
[2022-05-01 21:37] LABS: CREATININE 1.45 mg/dL (0.55-1.02); POTASSIUM 4.6 mmol/L (3.5-5.1); TOTAL PROTEIN 7.5 gm/dL (6.4-8.2)
== END 2022-05-01 23:39 | disposition home or self-care (01) ==
LOC: ED 19:19
PROVIDERS: Physician Assistant
DX: S90.412A Abrasion, left great toe, initial encounter (principal); E11.65 Type 2 diabetes mellitus with hyperglycemia; F17.200 Nicotine dependence, unspecified, uncomplicated; Z90.710 Acquired absence of both cervix and uterus; Z98.51 Tubal ligation status; Z90.49 Acquired absence of other specified parts of digestive tract; Z79.899 Other long term (current) drug therapy; Z79.4 Long term (current) use of insulin; Z91.041 Radiographic dye allergy status; Z88.0 Allergy status to penicillin; W22.8XXA Striking against or struck by other objects, initial encounter; Y93.89 Activity, other specified; Y92.89 Other specified places as the place of occurrence of the external cause; Y99.9 Unspecified external cause status

== ENCOUNTER → 2023-04-19 | Outpatient (CLI) | payer OTHER | END | disposition home or self-care (01) | LOC: US 02:22 | PROVIDERS: ATTEND Internal Medicine | DX: I65.23 Occlusion and stenosis of bilateral carotid arteries (principal); R42 Dizziness and giddiness ==

== ENCOUNTER → 2023-05-09 | Outpatient (CLI) | payer OTHER | END | disposition home or self-care (01) | LOC: CT 04-27 14:00 | PROVIDERS: ATTEND Internal Medicine | DX: R42 Dizziness and giddiness (principal); R51.9 Headache, unspecified ==

== ENCOUNTER 2023-09-30 14:24 | Emergency (ER) | payer OTHER ==
[~2023-09-30] VITALS: Ht 165.1 cm; Wt 112.5 kg
[2023-09-30 14:45] VITALS: BP 146/82
[2023-09-30] MEDS ORDERED: BACITRAYCIN PLU28 GM TD (15:15)
[2023-09-30] MEDS ORDERED: CLINDAMYCIN HC300 MG PO (15:15)
== END 2023-09-30 15:22 | disposition home or self-care (01) ==
LOC: ED 14:24
DX: L03.116 Cellulitis of left lower limb (principal); L97.921 Non-pressure chronic ulcer of unspecified part of left lower leg limited to breakdown of skin; L53.9 Erythematous condition, unspecified; I25.10 Atherosclerotic heart disease of native coronary artery without angina pectoris; K21.9 Gastro-esophageal reflux disease without esophagitis; E11.9 Type 2 diabetes mellitus without complications; J44.9 Chronic obstructive pulmonary disease, unspecified; E78.00 Pure hypercholesterolemia, unspecified; I10 Essential (primary) hypertension; Z88.0 Allergy status to penicillin; Z91.041 Radiographic dye allergy status; Z90.710 Acquired absence of both cervix and uterus; Z98.51 Tubal ligation status; Z90.49 Acquired absence of other specified parts of digestive tract; Z95.5 Presence of coronary angioplasty implant and graft; Z98.890 Other specified postprocedural states

== ENCOUNTER → 2023-12-26 | Outpatient (CLI) | payer OTHER ==
[~2023-12-26] MED LIST changes: +BACITRAYCIN PLU28 GM TD; +CLINDAMYCIN HC300 MG PO
[2023-12-26 15:50] LABS: BASO # 0.1 10*3/uL (0.0-0.1); BASO % 0.6 % (0.0-1.0); EOS # 0.2 10*3/uL (0.0-0.4); HEMATOCRIT 36.9 % (37.0-47.0); LYMPH # 1.5 10*3/uL (1.3-4.4); LYMPH % 16.4 % (27.0-41.0); MEAN CELL VOLUME 88.7 fl (81.0-99.0); MEAN CORPUSCULAR HGB 25.7 pg (27.0-31.0); MEAN PLATELET VOLUME 9.6 fl (9.6-12.3); MONO # 0.8 10*3/uL (0.1-1.0); MONO % 8.6 % (3.0-9.0); NEUT # 6.5 10*3/uL (2.3-7.9); NEUT % 71.8 % (47.0-73.0); PLATELET COUNT AUTOMATED 237 10*3/uL (130-400); RED BLOOD COUNT 4.16 10*6/uL (4.10-5.10); RED CELL DISTRI WIDTH 15.3 % (0-14.5)
[2023-12-26 16:13] LABS: VITAMIN D, 25-HYDROXY 31.3 ng/mL (30-100)
[2023-12-26 16:14] LABS: FREE T4 1.21 ng/dl (0.89-1.76); POTASSIUM 4.1 mmol/L (3.4-5.1); TOTAL PROTEIN 7.5 gm/dL (6.0-8.0)
== END | disposition home or self-care (01) ==
LOC: LAB 15:25
PROVIDERS: ATTEND Internal Medicine
DX: Z13.0 Encounter for screening for diseases of the blood and blood-forming organs and certain disorders involving the immune mechanism (principal); Z13.1 Encounter for screening for diabetes mellitus; Z13.21 Encounter for screening for nutritional disorder; Z13.220 Encounter for screening for lipoid disorders; Z13.228 Encounter for screening for other metabolic disorders; Z13.29 Encounter for screening for other suspected endocrine disorder; Z13.6 Encounter for screening for cardiovascular disorders; Z13.89 Encounter for screening for other disorder; Z13.9 Encounter for screening, unspecified; I10 Essential (primary) hypertension; E11.649 Type 2 diabetes mellitus with hypoglycemia without coma

== ENCOUNTER 2024-03-17 14:23 | Observation (INO) | payer OTHER ==
[~2024-03-17] VITALS: Ht 165.1 cm; Wt 122.3 kg
[2024-03-17 14:32] VITALS: BP 184/98
[2024-03-17 14:49] LABS: BASO % 0.5 % (0.0-1.0); EOS # 0.2 10*3/uL (0.0-0.4); EOS % 2.2 % (1.0-4.0); HEMATOCRIT 37.1 % (37.0-47.0); LYMPH # 1.3 10*3/uL (1.3-4.4); LYMPH % 16.3 % (27.0-41.0); MEAN CELL VOLUME 83.2 fl (81.0-99.0); MEAN CORPUSCULAR HGB 24.2 pg (27.0-31.0); MEAN CORPUSCULAR HGB CONC 29.1 g/dl (33.0-37.0); MEAN PLATELET VOLUME 9.3 fl (9.6-12.3); MONO # 0.5 10*3/uL (0.1-1.0); MONO % 6.4 % (3.0-9.0); NEUT # 5.6 10*3/uL (2.3-7.9); NEUT % 73.7 % (47.0-73.0); PLATELET COUNT AUTOMATED 229 10*3/uL (130-400); RED BLOOD COUNT 4.46 10*6/uL (4.10-5.10); RED CELL DISTRI WIDTH 18.7 % (0-14.5); WHITE BLOOD COUNT 7.7 10*3/uL (4.8-10.8)
[2024-03-17 15:01] LABS: ACT PARTIAL THROMBO TIME 25.5 SECONDS (20.0-32.1)
[2024-03-17 15:06] LABS: ALKALINE PHOSPHATASE 90 U/L (46-116); BUN 9 mg/dl (9-23); CHLORIDE 103 mmol/L (98-107); POTASSIUM 3.5 mmol/L (3.4-5.1); SGPT/ALT 15 U/L (5-49); TOTAL PROTEIN 7.4 gm/dL (6.0-8.0)
[2024-03-17 15:30] VITALS: BP 160/58
[2024-03-17] MEDS ORDERED: MORPHINE Sulfate 2 MG/ML SYR IV ONE (16:00)
[2024-03-17 16:24] VITALS: BP 169/60
[2024-03-17] MEDS ORDERED: ISOSORBIDE DINI30 MG PO (16:30)
[2024-03-17] MEDS ORDERED: CLOPIDOGREL75 MG PO (16:31)
[2024-03-17] MEDS ORDERED: ASPIRIN ADULT L81 M1 PO (16:32)
[2024-03-17] MEDS ORDERED: JARDIANCE25 MG PO (16:32)
[2024-03-17] MEDS ORDERED: TRULICITY3 MG/0.5 M SQ (16:35)
[2024-03-17 18:17] VITALS: BP 166/48
[2024-03-17 21:30] VITALS: BP 178/76
[2024-03-17] MEDS ORDERED: Acetaminophen/Hydrocodone HP 10/325 PO PRN (22:45)
[2024-03-17] MEDS ORDERED: Albuterol Sulfate 2.5 MG/3 ML VIAL NEB PRN (22:55)
[2024-03-17] MEDS ORDERED: Ondansetron Hydrochloride 4 MG TAB PO PRN (23:55)
[2024-03-18] VITALS: BP 169/60
[2024-03-18] MEDS ORDERED: CARVEDILOL 25 MG TAB PO SCH ×2 (00:01→10:00)
[2024-03-18] MEDS ORDERED: Insulin Glargine, Recombinan 1 UNIT/0.01 ML SC SCH (00:12)
[2024-03-18] MEDS ORDERED: ZOLPIDEM TARTRATE 10 MG TAB PO SCH ×2 (00:41→22:00)
[2024-03-18] MEDS ORDERED: DEXTROSE 10 % IN WATER 250 ML IV PRN (02:05)
[2024-03-18] MEDS ORDERED: GABAPENTIN 300 MG CAP PO SCH (06:00)
[2024-03-18] MEDS ORDERED: OMEPRAZOLE 20 MG CAP PO SCH (06:00)
[2024-03-18] MEDS ORDERED: GLIMEPIRIDE 2 MG TAB PO SCH (07:30)
[2024-03-18] MEDS ORDERED: INSULIN REGULAR, HUMAN 1 UNIT/0.01 ML SC SCH (07:30)
[2024-03-18 08:00] VITALS: BP 154/67
[2024-03-18] MEDS ORDERED: LISINOPRIL10 M1 PO ×2 (08:21)
[2024-03-18] MEDS ORDERED: Technetium Tc 99M Tetrofosmi 0.23 MG KIT IJ SCH (08:40)
[2024-03-18] MEDS ORDERED: Regadenoson 0.4 MG/5 ML SYR IV ONE (08:49)
[2024-03-18] MEDS ORDERED: Clopidogrel Hydrogen Sulfate 75 MG TAB PO SCH (10:00)
[2024-03-18] MEDS ORDERED: BUMETANIDE 1 MG TAB PO SCH (10:00)
[2024-03-18] MEDS ORDERED: ISOSORBIDE MONONITRATE 30 MG TAB PO SCH (10:00)
[2024-03-18] MEDS ORDERED: LAMOTRIGINE 100 MG TAB PO SCH (10:00)
[2024-03-18] MEDS ORDERED: EMPAGLIFLOZIN 25 MG TABLET PO SCH (10:00)
[2024-03-18] MEDS ORDERED: ASPIRIN, CHEWABLE 81 MG TAB PO SCH (10:00)
[2024-03-18] MEDS ORDERED: LISINOPRIL 10 MG TAB PO SCH (10:00)
[2024-03-18] MEDS ORDERED: AMINOPHYLLINE 250 MG/10 ML VIAL IV ONE ×2 (10:57→11:30)
[2024-03-18 12:00] VITALS: BP 165/83
[2024-03-18] MEDS ORDERED: PERFLUTREN PROTEIN-A MICROSPHR 3 ML VIAL IV ONE (13:29)
== END 2024-03-18 14:20 | disposition home or self-care (01) ==
LOC: ED 14:23 → 4E 16:03 → EDHOLD 16:03 → 4E 20:32
PROVIDERS: Physician Assistant Medical; ADMIT Internal Medicine; ATTEND Internal Medicine
DX: R07.89 Other chest pain (principal); I25.10 Atherosclerotic heart disease of native coronary artery without angina pectoris; I10 Essential (primary) hypertension; E11.9 Type 2 diabetes mellitus without complications; E78.5 Hyperlipidemia, unspecified; Z79.82 Long term (current) use of aspirin; Z79.899 Other long term (current) drug therapy

== ENCOUNTER → 2024-05-13 | Outpatient (CLI) | payer OTHER ==
[~2024-05-13] MED LIST changes: +ASPIRIN ADULT L81 M1 PO; +CLOPIDOGREL75 MG PO; +ISOSORBIDE DINI30 MG PO; +JARDIANCE25 MG PO; +LISINOPRIL10 M1 PO; +TRULICITY3 MG/0.5 M SQ
== END | disposition home or self-care (01) ==
LOC: CT 10:20
PROVIDERS: ATTEND Internal Medicine Critical Care Medicine
DX: E04.1 Nontoxic single thyroid nodule (principal); R13.12 Dysphagia, oropharyngeal phase; K11.8 Other diseases of salivary glands; J96.11 Chronic respiratory failure with hypoxia; R63.4 Abnormal weight loss; R04.2 Hemoptysis; M50.80 Other cervical disc disorders, unspecified cervical region; I25.10 Atherosclerotic heart disease of native coronary artery without angina pectoris; Z86.16 Personal history of COVID-19; Z87.891 Personal history of nicotine dependence; Z68.41 Body mass index [BMI] 40.0-44.9, adult; Z99.81 Dependence on supplemental oxygen

== ENCOUNTER 2024-08-31 20:01 | Inpatient (IN) | payer OTHER ==
[~2024-08-31] VITALS: Ht 165.1 cm; Wt 112.5 kg
[2024-08-31 20:02] VITALS: BP 150/65
[2024-08-31 20:40] LABS: BASO % 0.4 % (0.0-1.0); EOS # 0.2 10*3/uL (0.0-0.4); EOS % 2.7 % (1.0-4.0); HEMATOCRIT 42.3 % (37.0-47.0); MEAN CELL VOLUME 89.4 fl (81.0-99.0); MEAN CORPUSCULAR HGB 27.7 pg (27.0-31.0); MEAN PLATELET VOLUME 9.3 fl (9.6-12.3); MONO # 0.6 10*3/uL (0.1-1.0); MONO % 6.5 % (3.0-9.0); NEUT # 5.4 10*3/uL (2.3-7.9); NEUT % 64.5 % (47.0-73.0); PLATELET COUNT AUTOMATED 237 10*3/uL (130-400); RED BLOOD COUNT 4.73 10*6/uL (4.10-5.10); RED CELL DISTRI WIDTH 15.6 % (0-14.5); WHITE BLOOD COUNT 8.4 10*3/uL (4.8-10.8)
[2024-08-31 20:58] LABS: ACT PARTIAL THROMBO TIME 28.5 SECONDS (20.0-32.1); POTASSIUM 3.8 mmol/L (3.4-5.1)
[2024-09-01] VITALS: BP 162/58
[2024-09-01] MEDS ORDERED: Acetaminophen/Hydrocodone HP 10/325 PO PRN (00:05)
[2024-09-01] MEDS ORDERED: Albuterol Sulfate 2.5 MG/3 ML VIAL NEB PRN (00:05)
[2024-09-01] MEDS ORDERED: Ondansetron Hydrochloride 4 MG TAB PO PRN (00:10)
[2024-09-01 03:11] VITALS: BP 154/67
[2024-09-01] MEDS ORDERED: OMEPRAZOLE 20 MG CAP PO SCH (06:00)
[2024-09-01] MEDS ORDERED: GABAPENTIN 300 MG CAP PO SCH (06:00)
[2024-09-01 06:07] VITALS: BP 149/53
[2024-09-01] MEDS ORDERED: Regadenoson 0.4 MG/5 ML SYR IV ONE (06:51)
[2024-09-01] MEDS ORDERED: GLIMEPIRIDE 2 MG TAB PO SCH (07:30)
[2024-09-01] MEDS ORDERED: ASPIRIN, CHEWABLE 81 MG TAB PO SCH (10:00)
[2024-09-01] MEDS ORDERED: Clopidogrel Hydrogen Sulfate 75 MG TAB PO SCH (10:00)
[2024-09-01] MEDS ORDERED: LAMOTRIGINE 100 MG TAB PO SCH (10:00)
[2024-09-01] MEDS ORDERED: LISINOPRIL 10 MG TAB PO SCH (10:00)
[2024-09-01] MEDS ORDERED: Insulin Glargine, Recombinan 1 UNIT/0.01 ML SC SCH (10:00)
[2024-09-01] MEDS ORDERED: BUMETANIDE 1 MG TAB PO SCH (10:00)
[2024-09-01] MEDS ORDERED: ISOSORBIDE DINITRATE 10 MG TAB PO SCH (10:00)
[2024-09-01] MEDS ORDERED: CARVEDILOL 25 MG TAB PO SCH (10:00)
[2024-09-01] MEDS ORDERED: EMPAGLIFLOZIN 25 MG TABLET PO SCH (10:00)
[2024-09-01 12:00] VITALS: BP 135/53
[2024-09-01 16:00] VITALS: BP 131/55
[2024-09-01 20:00] VITALS: BP 122/58
[2024-09-02] VITALS: BP 126/52
[2024-09-02 08:00] VITALS: BP 138/78
== END 2024-09-02 08:42 | disposition short-term general hospital (02) | DRG 303 ==
LOC: ED 20:01 → EDHOLD 23:16 → 4E 23:16
PROVIDERS: Internal Medicine; ADMIT Internal Medicine; ATTEND Internal Medicine
PROC: 4A02XM4 Measurement of Cardiac Total Activity, External Approach (ICD-10-PCS; principal; 2024-09-01)
PROC: 3E073KZ Introduction of Other Diagnostic Substance into Coronary Artery, Percutaneous Approach (ICD-10-PCS; 2024-09-01)
DX: I25.118 Atherosclerotic heart disease of native coronary artery with other forms of angina pectoris (principal); Z68.42 Body mass index [BMI] 45.0-49.9, adult; I50.32 Chronic diastolic (congestive) heart failure; F41.1 Generalized anxiety disorder; E66.01 Morbid (severe) obesity due to excess calories; E11.43 Type 2 diabetes mellitus with diabetic autonomic (poly)neuropathy; K31.84 Gastroparesis; I11.0 Hypertensive heart disease with heart failure; E78.5 Hyperlipidemia, unspecified; F51.01 Primary insomnia; E11.42 Type 2 diabetes mellitus with diabetic polyneuropathy; F51.04 Psychophysiologic insomnia; M15.9 Polyosteoarthritis, unspecified; K21.00 Gastro-esophageal reflux disease with esophagitis, without bleeding; Z88.0 Allergy status to penicillin; Z95.5 Presence of coronary angioplasty implant and graft; Z91.041 Radiographic dye allergy status; Z90.710 Acquired absence of both cervix and uterus; Z98.51 Tubal ligation status; Z90.49 Acquired absence of other specified parts of digestive tract

== ENCOUNTER → 2025-03-25 | Outpatient (CLI) | payer OTHER | END | disposition home or self-care (01) | LOC: RAD 13:25 | PROVIDERS: ATTEND Internal Medicine | DX: R06.02 Shortness of breath (principal) ==

== ENCOUNTER 2025-06-05 21:06 | Inpatient (IN) | payer OTHER ==
[~2025-06-05] VITALS: Ht 165.1 cm; Wt 117.1 kg
[~2025-06-05 21:06] MED LIST changes: +AMBIEN5 MG PO; +ATORVASTATIN CA40 M1 PO; +BUMETANIDE2 MG PO; +ESOMEPRAZOLE MA40 M1 PO; +EZALLOR SPRINKL40 MG PO; +Imdur SA60 MG PO; +JARDIANCE10 MG PO; +KLOR-CON M2020 ME1 PO; +LAMOTRIGINE150 MG PO; +LAMOTRIGINE25 M1 PO; +METHOCARBAMOL500 M1 PO; +MUCUS RELIEF E600 MG PO; +NITROGLYCERIN0.4 MG SL; +OMEPRAZOLE40 MG PO; +Ondansetron8 MG PO; +PREDNISONE5 MG PO; +RANOLAZINE ER500 MG PO; +VAZALORE81 MG PO; +VENT7GM INH; +Vibra-Tab100 MG PO
[2025-06-05 21:07] VITALS: BP 116/34
[2025-06-05] MEDS ORDERED: SODIUM CHLORIDE 0.9% 1,000 ML IV ONE (21:35)
[2025-06-05] MEDS ORDERED: diazePAM 5 MG TAB PO ONE (21:35)
[2025-06-05 21:58] LABS: BASO # 0.0 10*3/uL (0.0-0.1); BASO % 0.3 % (0.0-1.0); EOS # 0.2 10*3/uL (0.0-0.4); EOS % 2.4 % (1.0-4.0); MEAN CELL VOLUME 87.8 fl (81.0-99.0); MEAN CORPUSCULAR HGB 27.3 pg (27.0-31.0); MEAN PLATELET VOLUME 9.4 fl (9.6-12.3); MONO # 0.7 10*3/uL (0.1-1.0); MONO % 7.7 % (3.0-9.0); NEUT # 6.8 10*3/uL (2.3-7.9); NEUT % 73.5 % (47.0-73.0); NUCLEATED RED BLOOD CELL 0.0 % (0.0-0.0); NUCLEATED RED BLOOD CELL 0.0 10*3/uL (0.0-0.0); PLATELET COUNT AUTOMATED 206 10*3/uL (130-400); RED CELL DISTRI WIDTH 18.1 % (0-14.5)
[2025-06-05 22:16] LABS: BUN 25.0 mg/dl (9-23)
[2025-06-05] MEDS ORDERED: POTASSIUM CHLORIDE 20 MEQ TAB PO ONE (22:30)
[2025-06-05 22:58] LABS: BILIRUBIN Negative (Negative); BLOOD Negative (Negative); CLARITY Clear (Clear); COLOR Yellow (Yellow); KETONE Trace (Negative); LEUKO ESTERASE Negative (Negative); NITRITE Negative (Negative); PH 5.5 (4.5-8.0); SPECIFIC GRAVITY 1.025 (1.001-1.030); UROBILINOGEN 0.2 E.U./dl (0.0-1.0)
[2025-06-05 23:05] LABS: BACTERIA 1+; FINE GRANULAR CAST 0-2; MUCOUS 1+; RBC 0-2 rbc/hpf (0-2)
[2025-06-05 23:30] VITALS: BP 129/88
[2025-06-06 02:27] VITALS: BP 119/43
[2025-06-06] MEDS ORDERED: CIPROFLOXACIN500 M4 PO (03:17)
[2025-06-06] MEDS ORDERED: HYDROCODONE-AC1 EACH PO (03:18)
[2025-06-06] MEDS ORDERED: BRILINTA90 M1 PO (03:23)
[2025-06-06] MEDS ORDERED: BUMETANIDE1 MG PO (03:24)
[2025-06-06] MEDS ORDERED: ESOMEPRAZOLE MA40 M1 PO (03:25)
[2025-06-06] MEDS ORDERED: OMEPRAZOLE MAGN20 MG PO (03:27)
[2025-06-06] MEDS ORDERED: TRULICITY4.5 MG/0.5 SQ (03:29)
[2025-06-06] MEDS ORDERED: LANTUS SOL100 UNIT/1 SC (03:30)
[2025-06-06] MEDS ORDERED: LISINOPRIL10 M1 PO (03:33)
[2025-06-06] MEDS ORDERED: POTASSIUM CHLO20 ME3 PO (03:34)
[2025-06-06] MEDS ORDERED: ASPIRIN CHEWABL81 MG PO (03:36)
[2025-06-06] MEDS ORDERED: SODIUM CHLORIDE 0.9% 1,000 ML IV ONE (03:50)
[2025-06-06] MEDS ORDERED: DEXTROSE 10 % IN WATER 250 ML IV PRN (03:55)
[2025-06-06] MEDS ORDERED: LEPTOSPERMUM HONEY 0.5 OZ TUBE T ONE (04:21)
[2025-06-06] MEDS ORDERED: FOAM BANDAGE 5X5 T ONE (04:22)
[2025-06-06 05:26] LABS: BUN 19 mg/dl (9-23); SGPT/ALT 10 U/L (5-49)
[2025-06-06 06:07] LABS: BASO # 0.0 10*3/uL (0.0-0.1); BASO % 0.4 % (0.0-1.0); EOS # 0.2 10*3/uL (0.0-0.4); EOS % 2.6 % (1.0-4.0); MEAN CELL VOLUME 88.3 fl (81.0-99.0); MEAN CORPUSCULAR HGB 27.4 pg (27.0-31.0); MEAN PLATELET VOLUME 9.6 fl (9.6-12.3); MONO # 0.7 10*3/uL (0.1-1.0); MONO % 7.7 % (3.0-9.0); NEUT # 6.1 10*3/uL (2.3-7.9); NEUT % 70.8 % (47.0-73.0); NUCLEATED RED BLOOD CELL 0.0 % (0.0-0.0); NUCLEATED RED BLOOD CELL 0.0 10*3/uL (0.0-0.0); PLATELET COUNT AUTOMATED 179 10*3/uL (130-400); RED CELL DISTRI WIDTH 18.3 % (0-14.5)
[2025-06-06] MEDS ORDERED: INSULIN REGULAR, HUMAN 1 UNIT/0.01 ML SC SCH (07:00)
[2025-06-06 08:00] VITALS: BP 141/53
[2025-06-06 12:00] VITALS: BP 156/72
[2025-06-06] MEDS ORDERED: POTASSIUM CHLORIDE 20 MEQ TAB PO SCH (12:25)
[2025-06-06] MEDS ORDERED: SODIUM CHLORIDE 0.9% 1,000 ML IV SCH (12:25)
[2025-06-06 16:00] VITALS: BP 141/80
[2025-06-06] MEDS ORDERED: Acetaminophen/Hydrocodone HP 10/325 PO PRN (17:00)
[2025-06-06] MEDS ORDERED: NITROGLYCERIN 0.4 MG BOT SL PRN (17:00)
[2025-06-06] MEDS ORDERED: OMEPRAZOLE 20 MG CAP PO SCH (18:00)
[2025-06-06 20:00] VITALS: BP 154/66
[2025-06-06] MEDS ORDERED: ZOLPIDEM TARTRATE 5 MG TAB PO SCH (22:00)
[2025-06-06] MEDS ORDERED: LAMOTRIGINE 100 MG TAB PO SCH (22:00)
[2025-06-06] MEDS ORDERED: TICAGRELOR 90 MG TABLET PO SCH (22:00)
[2025-06-06] MEDS ORDERED: GABAPENTIN 300 MG CAP PO SCH (22:00)
[2025-06-06] MEDS ORDERED: CARVEDILOL 25 MG TAB PO SCH (22:00)
[2025-06-06] MEDS ORDERED: Ranolazine 500 MG TAB ER PO SCH (22:00)
[2025-06-07] VITALS: BP 128/46
[2025-06-07 06:23] LABS: BASO # 0.0 10*3/uL (0.0-0.1); BASO % 0.5 % (0.0-1.0); EOS # 0.2 10*3/uL (0.0-0.4); EOS % 2.4 % (1.0-4.0); MEAN CELL VOLUME 87.2 fl (81.0-99.0); MEAN CORPUSCULAR HGB 27.5 pg (27.0-31.0); MEAN PLATELET VOLUME 9.4 fl (9.6-12.3); MONO # 0.5 10*3/uL (0.1-1.0); MONO % 7.7 % (3.0-9.0); NEUT # 4.6 10*3/uL (2.3-7.9); NEUT % 69.3 % (47.0-73.0); NUCLEATED RED BLOOD CELL 0.0 % (0.0-0.0); NUCLEATED RED BLOOD CELL 0.0 10*3/uL (0.0-0.0); PLATELET COUNT AUTOMATED 169 10*3/uL (130-400); RED CELL DISTRI WIDTH 18.6 % (0-14.5)
[2025-06-07 06:49] LABS: BUN 14 mg/dl (9-23)
[2025-06-07 08:00] VITALS: BP 171/66
[2025-06-07] MEDS ORDERED: ISOSORBIDE MONONITRATE 60 MG TAB PO SCH (10:00)
[2025-06-07] MEDS ORDERED: EMPAGLIFLOZIN 25 MG TABLET PO SCH (10:00)
[2025-06-07] MEDS ORDERED: Insulin Glargine, Recombinan 1 UNIT/0.01 ML SC SCH (10:00)
[2025-06-07] MEDS ORDERED: LISINOPRIL 10 MG TAB PO SCH (10:00)
[2025-06-07] MEDS ORDERED: GLIMEPIRIDE 2 MG TAB PO SCH (10:00)
[2025-06-07] MEDS ORDERED: ASPIRIN, CHEWABLE 81 MG TAB PO SCH (10:00)
[2025-06-07] MEDS ORDERED: BUMETANIDE 1 MG TAB PO SCH (10:00)
[2025-06-07 12:00] VITALS: BP 126/65
[2025-06-07 16:00] VITALS: BP 149/60
[2025-06-07 20:00] VITALS: BP 139/47
[2025-06-08] VITALS: BP 152/61
[2025-06-08 07:44] LABS: BUN 18 mg/dl (9-23)
[2025-06-08 08:00] VITALS: BP 173/77
[2025-06-08] MEDS ORDERED: MUPIROCIN 15 GM TUBE T SCH (10:00)
[2025-06-08 11:51] VITALS: BP 118/48
[2025-06-08] MEDS ORDERED: FOAM BANDAGE 5X5 T ONE (12:29)
[2025-06-09] MEDS ORDERED: MUPIROCIN 15 GM TUBE T SCH (10:00)
== END 2025-06-08 12:38 | disposition home or self-care (01) | DRG 683 ==
LOC: ED 21:06 → 4E 23:57 → EDHOLD 23:57 → 4E 06-06 01:33
PROVIDERS: Nurse Practitioner Family; ADMIT Internal Medicine; ATTEND Internal Medicine
DX: N17.0 Acute kidney failure with tubular necrosis (principal); Z68.41 Body mass index [BMI] 40.0-44.9, adult; H81.10 Benign paroxysmal vertigo, unspecified ear; E87.6 Hypokalemia; E66.01 Morbid (severe) obesity due to excess calories; I25.10 Atherosclerotic heart disease of native coronary artery without angina pectoris; F51.01 Primary insomnia; G89.29 Other chronic pain; M54.50 Low back pain, unspecified; E78.2 Mixed hyperlipidemia; K21.00 Gastro-esophageal reflux disease with esophagitis, without bleeding; J44.9 Chronic obstructive pulmonary disease, unspecified; E11.22 Type 2 diabetes mellitus with diabetic chronic kidney disease; I12.9 Hypertensive chronic kidney disease with stage 1 through stage 4 chronic kidney disease, or unspecified chronic kidney disease; N18.4 Chronic kidney disease, stage 4 (severe); Z88.0 Allergy status to penicillin; Z91.041 Radiographic dye allergy status; Z87.440 Personal history of urinary (tract) infections; Z79.82 Long term (current) use of aspirin; Z79.4 Long term (current) use of insulin

== ENCOUNTER → 2025-09-28 | Outpatient (CLI) | payer OTHER ==
[~2025-09-28] MED LIST changes: +ASPIRIN CHEWABL81 MG PO; +BRILINTA90 M1 PO; +CIPROFLOXACIN500 M4 PO; +COREG6.25 MG PO; +FUROSEMIDE40 MG PO; +IRON325 M1 PO; +LANTUS SOL100 UNIT/1 SC; +MECLIZINE HCL PO; +POTASSIUM CHLO20 ME3 PO; +REGLAN5 MG PO; +ROSUVASTATIN CA40 MG PO; +TRAD5TAB1 PO; +TRULICITY4.5 MG/0.5 SQ
== END | disposition home or self-care (01) ==
LOC: RAD 13:40
PROVIDERS: ATTEND Internal Medicine
DX: R07.1 Chest pain on breathing (principal); R05.9 Cough, unspecified